=== PATIENT | female | born 1960 | race Caucasian/White ===

== ENCOUNTER 2016-04-20 15:32 | Inpatient (IN) ==
[2016-04-20] MEDS ORDERED: IPRATROPIUM/ALBUTEROL 3 ML AMPUL.NEB NEB ONE (15:40)
[2016-04-20] MEDS ORDERED: methylPREDNISolone SOD SUCC 125 MG/2 ML VIAL IV ONE (16:03)
--- NOTE | 2016-04-20 16:05 | Emergency Department Note ---
SOB HPI - General Chief Complaint: Shortness of Breath/Dyspnea Stated Complaint: Short of breath Time Seen by Provider: 04/20/16 16:01 Source: patient Mode of arrival: ambulatory Limitations: no limitations - History of Present Illness Patient presents with fever to 102, cough and malaise. Hospitalizing March with pneumonia, feels the same. On chronic Remicade for Crohn's disease. Nonproductive cough. No chills Took Tylenol this morning - Related Data Home Medications Medication Instructions Recorded Confirmed Amitriptyline 300 mg PO HS 01/22/15 04/02/16 montelukast 10 mg tablet 10 mg PO QPM 03/28/15 03/27/16 Omeprazole [Prilosec] 20 mg PO BIDAC 09/17/15 04/02/16 mercaptopurine 50 mg tablet 50 mg PO HS tab 02/11/16 03/27/16 Warfarin [Coumadin] 5 mg PO DAILY 03/20/16 04/02/16 vedolizumab 300 mg intravenous 300 mg IV Q2W 03/27/16 03/27/16 solution Previous Rx's Medication Instructions Recorded nadolol 40 mg tablet 40 mg PO BID #60 tab 11/09/14 sumatriptan 100 mg tablet 100 mg PO ONCE PRN #10 tab 06/27/15 losartan 50 mg tablet 50 mg PO QDAY #90 tab 07/26/15 Ondansetron [Zofran Odt] 4 mg PO Q4-6H PRN #6 tab 09/17/15 ferrous sulfate 325 mg (65 mg 325 mg PO QDAY #30 tab 02/14/16 iron) tablet hydroxyzine HCl 25 mg tablet 50 mg PO QHS #60 tab 03/02/16 Cefdinir 300 mg PO BID #8 capsule 03/23/16 Allergies Allergy/AdvReac Type Severity Reaction Status Date / Time morphine Allergy Severe Hives Verified 04/02/16 10:57 cephalexin [From Keflex] Allergy Intermediate Hives Verified 04/02/16 10:57 moxifloxacin [From Avelox] AdvReac Severe Other Verified 04/02/16 10:57 Review of Systems All systems ED: reviewed and negative except as stated. Past Medical History - Past Medical History Attestation: Yes: The following information was validated with the patient. Medical history: Reports: other (Crohn's disease) Surgical history ED: Reports: , cholecystectomy, orthopedic, other, tonsillectomy, other Family history: Reports: other family history (ypertension) - Social History smoking status: Never smoker Alcohol use: Reports: Rarely Drug use: Reports: none Physical Exam - General Limitations: no limitations General appearance: alert, in no apparent distress - Head Head exam: atraumatic - Eye Eye exam: Present: normal appearance - ENT ENT exam: normal exam - Neck Neck exam: Present: normal inspection. Absent: lymphadenopathy - Chest Chest inspection: Present: normal inspection - Respiratory Respiratory exam: Present: normal lung sounds bilaterally - Cardiovascular Cardiovascular exam: Present: regular rate, normal rhythm - Abdominal Exam Abdominal exam: Present: soft. Absent: tenderness - Extremities Exam Extremities exam: Present: normal inspection - Back Exam Back exam: Present: normal inspection - Neurological Exam Neurological exam: Present: alert, oriented X3 - Skin Skin exam: Present: warm, dry Course Vital Signs Temperature 98.0 F 04/20/16 15:34 Pulse Rate 87 04/20/16 15:34 Respiratory Rate 18 04/20/16 15:34 Blood Pressure 93/47 04/20/16 15:34 Pulse Oximetry (%) 90 04/20/16 15:34 Temperature 98.0 F 04/20/16 15:34 Pulse Rate 76 04/20/16 17:56 Respiratory Rate 20 04/20/16 17:56 Blood Pressure 99/51 04/20/16 17:56 Pulse Oximetry (%) 94 04/20/16 17:56 Shortness of Breath/Dyspnea - Lab Data Lab results reviewed: Yes I reviewed the patient's lab results. Result diagrams: 04/20/16 16:15 04/20/16 16:15 Lab Results 04/20/16 04/20/16 04/20/16 Range/Units 16:15 16:15 16:15 WBC 29.6 H (4.5-11.0) K/mcL RBC 3.93 L (4.00-5.20) M/mcL Hgb 11.1 L (12.0-15.0) g/dL Hct 34.4 L (36.0-48.0) % MCV 87.5 (80.0-100.0) fL MCH 28.2 (26.0-34.0) pg MCHC 32.2 (31.0-36.0) g/dL RDW 15.3 H (11.5-14.5) % Plt Count 324 (140-440) K/mcL MPV 8.3 (7.4-10.4) fL Gran % 92.9 H (38.0-78.0) % Lymph % (Auto) 3.3 L (15.5-49.0) % [place] % (Auto) 3.7 (1.0-9.0) % Eos % (Auto) 0.1 (0.0-7.0) % Baso % (Auto) 0 (0.0-2.0) % Gran # 27.5 H (1.8-8.0) K/mcL Lymph # 1.0 L (1.5-4.8) K/mcL [place] # 1.1 H (0.1-0.9) K/mcL Eos # 0 (0.0-0.7) K/mcL Baso # 0 (0.0-0.3) K/mcL Differential Comment (()) PT (11.9-14.5) sec INR (0.9-1.1) VBG Lactic Acid 1.2 (0.5-2.2) mmol/L Sodium 131 L (133-145) mmol/L Potassium 4.0 (3.3-5.1) mmol/L Chloride 92 L (96-108) mmol/L Carbon Dioxide 26 (22-30) mmol/L Anion Gap 13.0 (8-16) BUN 16 (6-20) mg/dl Creatinine 1.1 (0.6-1.1) mg/dl GFR Calculation 56 Glucose 155 H (70-105) mg/dL Calcium 8.3 L (8.6-10.4) mg/dl Total Bilirubin 1.0 (0.0-1.0) mg/dL AST 12 (0-37) U/l ALT 14 (0-40) U/l Alkaline Phosphatase 103 (39-117) U/L Total Protein 7.2 (5.9-8.4) gm/dL Albumin 3.6 (3.2-5.2) gm/dL Globulin 3.6 (2.2-3.7) gm/dL Albumin/Globulin Ratio 1.0 (1.0-2.3) 04/20/16 Range/Units 16:15 WBC (4.5-11.0) K/mcL RBC (4.00-5.20) M/mcL Hgb (12.0-15.0) g/dL Hct (36.0-48.0) % MCV (80.0-100.0) fL MCH (26.0-34.0) pg MCHC (31.0-36.0) g/dL RDW (11.5-14.5) % Plt Count (140-440) K/mcL MPV (7.4-10.4) fL Gran % (38.0-78.0) % Lymph % (Auto) (15.5-49.0) % [place] % (Auto) (1.0-9.0) % Eos % (Auto) (0.0-7.0) % Baso % (Auto) (0.0-2.0) % Gran # (1.8-8.0) K/mcL Lymph # (1.5-4.8) K/mcL [place] # (0.1-0.9) K/mcL Eos # (0.0-0.7) K/mcL Baso # (0.0-0.3) K/mcL Differential Comment (()) PT 24.1 H (11.9-14.5) sec INR 2.1 H (0.9-1.1) VBG Lactic Acid (0.5-2.2) mmol/L Sodium (133-145) mmol/L Potassium (3.3-5.1) mmol/L Chloride (96-108) mmol/L Carbon Dioxide (22-30) mmol/L Anion Gap (8-16) BUN (6-20) mg/dl Creatinine (0.6-1.1) mg/dl GFR Calculation Glucose (70-105) mg/dL Calcium (8.6-10.4) mg/dl Total Bilirubin (0.0-1.0) mg/dL AST (0-37) U/l ALT (0-40) U/l Alkaline Phosphatase (39-117) U/L Total Protein (5.9-8.4) gm/dL Albumin (3.2-5.2) gm/dL Globulin (2.2-3.7) gm/dL Albumin/Globulin Ratio (1.0-2.3) - Radiology Data Radiology results reviewed: Yes I reviewed the patient's radiology results. reported as improving infiltrates Disposition Clinical Impression: Neutrophilic leukocytosis, SIRS (systemic inflammatory response syndrome), Bronchopneumonia, Immune disorder Summary: patient's records from hospitalization in March reviewed; felt to be high risk due to immune compromised state on meds for Crohn's; profound neutrophilia ; no infiltrate on chest x-ray, however findings on auscultation suggestive of developing pneumonia patient discussed with on-call hospitalist, admit to the floor Disposition: Xfer As Inpt ([facility]) Condition: Fair Referrals: Yue Jordan, YADI, CLINICAL CYTOGENETICIST [Primary Care Provider] -
--- NOTE | 2016-04-20 16:09 | XRay Report ---
HISTORY: Reason for Exam:possible PNE FINDINGS: There are zones of consolidated lung parenchyma above both the major and minor fissures, in the right upper lobe. A milder interstitial infiltrate is present in the right lower lobe. This has improved significantly since 08/02 and 04/03/2016. There is no apparent underlying mass. The left lung is clear. No pleural effusion is present. The heart size is normal. IMPRESSION: Improving pneumonia in the right upper and lower lobes. Interpreted and Authenticated by: Connor Marshall 04/20/16
[2016-04-20 17:06] LABS: Basophils # (Auto) 0 K/mcL (0.0-0.3); Basophils % (Auto) 0 % (0.0-2.0); Eosinophils # (Auto) 0 K/mcL (0.0-0.7); Eosinophils % (Auto) 0.1 % (0.0-7.0); Granulocytes % (Auto) 92.9 % (38.0-78.0); Lymphocytes % (Auto) 3.3 % (15.5-49.0); Mean Cell Volume 87.5 fL (80.0-100.0); Mean Corpuscular HGB Conc 32.2 g/dL (31.0-36.0); Mean Corpuscular Hemoglobin 28.2 pg (26.0-34.0); Monocytes # (Auto) 1.1 K/mcL (0.1-0.9); Monocytes % (Auto) 3.7 % (1.0-9.0); Platelet Count 324 K/mcL (140-440); RBC 3.93 M/mcL (4.00-5.20); Red Cell Distribution Width 15.3 % (11.5-14.5)
[2016-04-20 17:27] LABS: ALT/SGPT 14 U/l (0-40); Albumin 3.6 gm/dL (3.2-5.2); Alkaline Phosphatase 103 U/L (39-117); Blood Urea Nitrogen 16 mg/dl (6-20)
[2016-04-20] MEDS ORDERED: VANCOMYCIN 1,000 MG in 0.9 % SODIUM CHLORIDE 250 ML IV ONE (18:46)
--- NOTE | 2016-04-20 19:14 | Internal Med History&Physical ---
Medical - H&P: HPI Patient information: Note initiated : 04/20/16 at 7:12 pm Service Date, if different from initiated Date: [] Patient: Jhoana Garcia a 56 y/o F admitted on for Short of breath. Chief Complaint: [] History of present illness: Ms. Garcia is a 56 year old female presents the emergency room today complaining of increased shortness of breath. She was just here about one month ago with community-acquired pneumonia. she is chronically immunosuppressed due to her Crohn's disease medications. She notes that she was sent home on several days' worth of oral antibiotics but has really never gotten back to baseline. she says she was doing relatively well untilabout 5 days ago when she noted the onset of fever and chills, with temperature as high as 102. She has noticed some mild increased dyspnea with exertion. She has never really gotten rid of the cough that started last month , and that continues to be productive of green phlegm. She is also having more frequent migraines over the lastweek or so She does have some lightheadedness with standing. She also notes that she and her doctors have an fightingwith her chronic sinus infection, and that does not seem to ever settle down. Last week, she was also diagnosedwith C. difficile colitis, and was started on oral fidaxomicin . Also, after her last admission,her Remicade was stopped by GI and she was started on Entyvio, about 2 weeks ago. She will be due for another one of those injections soon. Otherwise, she is not having new eye Or ear symptoms, or sore throat. she denies chest pain or palpitations, and has not had wheezing. She has had some ongoing abdominal discomfort and diarrhea, but these are also chronic symptoms for her. She has not had nausea or vomiting or bright red blood per rectum or dysuria. 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 Bishop Esophageal dysmotilities (Chronic) Esophageal reflux (Chronic) Fungal sinusitis (Chronic) Headache (Chronic) Medication overuse headache with underlying migraine improved some with occiptal nerve block Hypertension (Chronic) MRSA (methicillin resistant Staphylococcus aureus) (Chronic) Migraine (Chronic) 9 years of age- with onset of menses; frequency now has been 2-3 per week, uses Demerol shots to deal with, sees Dr. Walker (neurologist) in [place] for these; has had occipital block at the pain clinic which has helped to lessen these some Migraine (Chronic) Pseudomonas aeruginosa infection (Chronic) Schatzki's ring (Chronic 02/13/14) Sinusitis, chronic (Chronic) 1997- sees and ENT in [place] for control of this; Dr. Nixon; takes prophylactic antibiotics for this- has been evaluated by ENT in [place] Abdominal pain (Resolved) Acute ethmoidal sinusitis (Resolved) Bilateral Acute maxillary sinusitis (Resolved) Complications of medical care (Resolved) Cough (Resolved) Chronic Deep vein thrombophlebitis of arm/jugular vein (Resolved) in [place] near her port for remicade injection; takes coumadin for this now Fall (Resolved) Fever (Resolved 06/25/13) Perforation of intestine (Resolved) Jejunal Pneumonia (Resolved) Renal malignant neoplasm (Resolved) 2005-renal cell carcinoma with partial nephrectomy Tension headache (Resolved) Vomiting (Resolved) Surgical History Port catheter in place (Chronic) 07/26/13 S/P insertion of spinal cord stimulator (Chronic) per Dr. Pittman History of (Resolved) 2 History of appendectomy (Resolved) 1985 History of back surgery (Resolved) 2010-Injection of acrylic at T9 level per Dr. Pittman History of bowel resection (Resolved) 1990.1990,1994, Feb 2010- Has had bowel rupture x 4 and subsequent resections, Dr. Jackson; Has had bowel blockage x 5 with 4 subsequent surgeries as a result, the most recent blockage/rupture was Feb 2010 History of carpal tunnel release (Resolved) Late - [place]ila[place] History of cervical discectomy (Resolved) 2011 History of cholecystectomy (Resolved) 40 yoa History of ear surgery (Resolved) Right middle ear History of esophagogastroduodenoscopy (Resolved 12/31/14) Dr. Bishop History of hysterectomy (Resolved) 1984-With oopherectomy History of left knee replacement (Resolved) 2002-Per Dr Gutierrez History of nephrectomy (Resolved) Left [id number] nephrectomy per Dr Ignacio History of sinus surgery (Resolved) 2008, 05/09/2013- Per Dr Nixon History of tonsillectomy (Resolved) 2 years of age History of tympanoplasty (Resolved) Medication List - Last Reconciled 03/27/16 by Yue Jordan, DNP, [employer]AREHOUSE RECORD CLERK [Amitriptyline 100 MG 300 mg PO HS] ferrous sulfate 325 mg PO QDAY hydroxyzine HCl 50 mg (2 x 25 mg) PO QHS losartan 50 mg PO QDAY mercaptopurine 50 mg PO HS montelukast 10 mg PO QPM nadolol 40 mg PO BID omeprazole 20 mg PO BIDAC ondansetron 4 mg PO Q4-6H PRN sumatriptan 100 mg PO ONCE PRN vedolizumab (Entyvio) 300 mg IV Q2W warfarin 5 mg PO DAILY Allergies/Adverse Reactions morphine Allergy (Severe, Verified 03/27/16 13:13) Hives cephalexin [From Keflex] Allergy (Intermediate, Verified 03/27/16 13:13) Hives moxifloxacin [From Avelox] Adverse Reaction (Severe, Verified 03/27/16 13:13) Other Family History Father Asthma Essential hypertension Leukemia Had Myelodysplasia syndrome which progressed to Leukemia Brother Family history of neoplasm of brain GRandmother (paternal) Essential hypertension Grandmother( maternal) Transient cerebral ischemia Social History she lives with her . She no longer works, and is on medical disability. She does not use tobacco, alcohol, drugs. household members: spouse, other pets and animals: Yes pets and animals: dog(s) victim of physical abuse: No victim of emotional abuse: No Medical - H&P: Meds Home Medications Medication Instructions Recorded Confirmed Type Amitriptyline 300 mg PO HS 01/22/15 04/20/16 History montelukast 10 mg tablet 10 mg PO QPM 03/28/15 04/20/16 History Omeprazole [Prilosec] 20 mg PO BIDAC 09/17/15 04/20/16 History mercaptopurine 50 mg tablet 50 mg PO HS tab 02/11/16 04/20/16 History Warfarin [Coumadin] 5 mg PO DAILY 03/20/16 04/20/16 History vedolizumab 300 mg intravenous 300 mg IV MONTHLY 03/27/16 04/20/16 History solution Ascorbic Acid [Vitamin C] 325 mg PO DAILY 04/20/16 04/20/16 History SUMAtriptan SUCCINATE [Imitrex] 100 mg PO BIDP PRN 04/20/16 04/20/16 History hydrOXYzine [Atarax] 50 mg PO HSP PRN 04/20/16 04/20/16 History Allergies Allergy/AdvReac Type Severity Reaction Status Date / Time morphine Allergy Severe Hives Verified 04/20/16 20:24 cephalexin [From Keflex] Allergy Intermediate Hives Verified 04/20/16 20:24 moxifloxacin [From Avelox] AdvReac Severe Other Verified 04/20/16 20:24 Medical - H&P: Exam - Constitutional Vitals: Temp Pulse Resp BP Pulse Ox 98.0 F 76 20 99/51 94 04/20/16 15:34 04/20/16 17:56 04/20/16 17:56 04/20/16 17:56 04/20/16 17:56 Exam: n exam,she is a well-developed well-nourished female who appears older than her stated age. head: Normocephalic, atraumatic. Ears: TMs and canals are clear. Eyes: PERRLA, EOMI, anicteric. Pharynx: Pharynx is clear, teeth are in good repair. Neck: Is supple, without obvious lymphadenopathy, JVD, thyromegaly, bruits. Cardiac exam: Shows regular rate and rhythm, with normal S1 and S2, without murmurs, rubs, gallops. Lungs: She has a few crackles at the right base, but otherwise lungs are quite clear, without obviousrhonchi or wheezes. Abdomen: Is soft, but somewhat diffusely tender without guarding or rebound. Bowel sounds are active. Extremities: Show no cyanosis, clubbing, edema. Neurologic exam: Is grossly nonfocal. Skin exam: Shows no obvious rashes or other worrisome lesions. Medical - H&P: Reslt - Labs CBC & Chem 7: 04/20/16 16:15 04/20/16 16:15 Labs: Short CBC 04/20/16 Range/Units 16:15 WBC 29.6 H (4.5-11.0) K/mcL Hgb 11.1 L (12.0-15.0) g/dL Hct 34.4 L (36.0-48.0) % Plt Count 324 (140-440) K/mcL BMP 04/20/16 16:15 Sodium 131 L Potassium 4.0 Chloride 92 L Carbon Dioxide 26 BUN 16 Creatinine 1.1 Glucose 155 H Calcium 8.3 L Liver Function 04/20/16 Range/Units 16:15 Total Bilirubin 1.0 (0.0-1.0) mg/dL AST 12 (0-37) U/l ALT 14 (0-40) U/l Alkaline Phosphatase 103 (39-117) U/L Albumin 3.6 (3.2-5.2) gm/dL differential shows 92% granulocytes, with an absolute granulocyte count 27,000 PTT is 24, INR is 2.1 chest x-ray from the ERshows right upper lobe infiltrate and right lower lobe infiltrate, improved when compared to April 03, 2016. lactic acid is normal at 1.2 Medical - H&P: A/P (1) Bronchopneumonia Current visit: Yes Status: Acute (2) Crohns disease Problem details: 1985-Diagnosed per Dr. Bishop Current visit: No Status: Chronic (3) MRSA (methicillin resistant Staphylococcus aureus) Current visit: No Status: Chronic #1. Infectious disease. This patient presents with fever and markedly leukocytosis with bandemia. Clinical symptoms are suggestive of pneumonia, although her chest x-ray does not look worse than the one done 2 weeks ago. -she also was recently diagnosed with C. difficile colitis, and it is possible that that might explain the white count, although it would not explain her respiratory symptoms as well. -Admitted for broad-spectrum IV antibiotics using azithromycin, vancomycin, imipenem, to be sure she is covered fo staph and atypicals, and Pseudomonas., blood and sputum cultures, oxygen, nebulized albuterol, and other medicines as needed. she does have reported past history of both MRSA and pseudomonas infections. #2. Pulmonary. -she does have reported chronic sinusitis, but no reported history of COPD or asthma. she is maintained on Singulair. she should be low risk for PE, given that she has been therapeutic on Coumadin. #3. Immune system. Patient is immunosuppressed due to ongoing treatment for Crohn's disease. #4. GI. - History of Crohn's. continue Entyvio -C. difficile-it is possible that IV antibiotics for pneumonia will worsen this. Continue oral fidaxomicin. -patient also history of GERD. it might be reasonable to discontinue her proton pump inhibitor while here, and use Pepcid instead, regarding the C. difficile. #5. History of DVT. Continue Coumadin and monitor INR. #6. History of migraines. Imitrex when necessary #7. CODE STATUS: Full code.she does not have a living will, but says her is her POA. #8. History of anemia. Continue iron. #9. History of hyperglycemia. Continue to monitor. #10. History of renal cellcancer 10 years ago. She appears to be cured. this visit took approximately 70 minutes to review her record, interview and examine her, and write orders. (4) C. difficile colitis Current visit: Yes Status: Acute (5) Prediabetes Current visit: No Status: Acute
[2016-04-20] MEDS ORDERED: ACETAMINOPHEN 325 MG TABLET PO PRN (20:21)
[2016-04-20] MEDS ORDERED: cefTRIAXone 1 GM in DEXTROSE 5% IN WATER 50 ML IV SCH (20:21)
[2016-04-20] MEDS ORDERED: MAGNESIUM HYDROXIDE 30 ML ORAL.SUSP PO PRN (20:21)
[2016-04-20] MEDS ORDERED: DOCUSATE SODIUM 100 MG CAPSULE PO PRN (20:21)
[2016-04-20] MEDS ORDERED: hydrOXYzine 25 MG TABLET PO PRN (21:07)
[2016-04-20] MEDS: 0.9 % SODIUM CHLORIDE 10 ML SYRINGE IV SCH (21:36)
[2016-04-20] MEDS: IMIPENEM/CILASTATIN SODIUM 500 MG in 0.9 % SODIUM CHLORIDE 100 ML IV SCH (21:36)
[2016-04-20] MEDS ORDERED: IMIPENEM/CILASTATIN SODIUM 500 MG VIAL IV ONE (21:37)
[2016-04-20] MEDS ORDERED: AZITHROMYCIN 500 MG VIAL IV ONE (22:54)
[2016-04-20] MEDS: AZITHROMYCIN 500 MG in DEXTROSE 5% IN WATER 250 ML IV SCH (22:55)
[2016-04-21 00:10] LABS: Hemoglobin A1C 5.5 % HGB (4.0-6.0)
[2016-04-21] MEDS: 0.9 % SODIUM CHLORIDE 10 ML SYRINGE IV SCH ×3 (06:07→21:43)
[2016-04-21] MEDS: IMIPENEM/CILASTATIN SODIUM 500 MG in 0.9 % SODIUM CHLORIDE 100 ML IV SCH ×3 (06:08→21:41)
[2016-04-21] MEDS: ONDANSETRON ODT 4 MG TABLET SL PRN ×3 (06:11→21:41)
[2016-04-21 06:36] LABS: ALT/SGPT 11 U/l (0-40); Albumin 3.6 gm/dL (3.2-5.2); Alkaline Phosphatase 103 U/L (39-117); Bilirubin,Direct < 0.2 mg/dL (0.0-0.3); Blood Urea Nitrogen 19 mg/dl (6-20); Gamma Glutamyl Transpeptidase 56 U/L (5-36); Magnesium 2.2 mg/dL (1.6-2.5); Phosphorous 3.2 mg/dL (2.7-4.5); Uric Acid 8.5 mg/dL (2.5-8.0)
[2016-04-21] MEDS ORDERED: PANTOPRAZOLE 40 MG TABLET PO SCH (07:30)
[2016-04-21] MEDS: FAMOTIDINE 20 MG TABLET PO SCH ×2 (08:42→21:41)
[2016-04-21] MEDS: FERROUS SULFATE 325 MG TABLET PO SCH (08:42)
[2016-04-21] MEDS: ASCORBIC ACID 500 MG TABLET PO SCH (08:42)
[2016-04-21] MEDS: LOSARTAN 50 MG TABLET PO SCH (08:42)
[2016-04-21] MEDS: NADOLOL 40 MG TABLET PO SCH ×2 (08:43→21:36)
[2016-04-21] MEDS: LACTOBACILLUS 1 CAPSULE PO SCH ×2 (08:43→21:37)
[2016-04-21] MEDS: FIDAXOMICIN 200 MG TABLET PO SCH ×2 (08:43→21:38)
[2016-04-21] MEDS ORDERED: ENOXAPARIN 40 MG/0.4 ML SYRINGE SQ SCH (09:00)
[2016-04-21] MEDS: HYDROmorphone 2 MG/ML SYRINGE IV PRN ×6 (11:33→23:08)
[2016-04-21] MEDS: ALBUTEROL SULFATE 2.5 MG/3 ML NEBULIZER NEB SCH ×2 (13:19→19:31)
--- NOTE | 2016-04-21 13:32 | Internal Med Progress Note ---
Medical - PN: Subj Patient information: Note initiated : 04/21/16 at 1:32 pm Service Date, if different from initiated Date: [] Patient: Jhoana Garcia 56 y/o F admitted on 04/20/16 for Short of Breath/ Bronchopneumonia. Chief Complaint: [] Interval history: April 20, 2016:History of present illness: Ms. Garcia is a 56 year old female presents the emergency room today complaining of increased shortness of breath. She was just here about one month ago with community-acquired pneumonia. she is chronically immunosuppressed due to her Crohn's disease medications. She notes that she was sent home on several days' worth of oral antibiotics but has really never gotten back to baseline. she says she was doing relatively well until about 5 days ago when she noted the onset of fever and chills, with temperature as high as 102. She has noticed some mild increased dyspnea with exertion. She has never really gotten rid of the cough that started last month , and that continues to be productive of green phlegm. She is also having more frequent migraines over the lastweek or so She does have some lightheadedness with standing. She also notes that she and her doctors have an fightingwith her chronic sinus infection, and that does not seem to ever settle down. Last week, she was also diagnosedwith C. difficile colitis, and was started on oral fidaxomicin . Also, after her last admission,her Remicade was stopped by GI and she was started on Entyvio, about 2 weeks ago. She will be due for another one of those injections soon. Otherwise, she is not having new eye Or ear symptoms, or sore throat. she denies chest pain or palpitations, and has not had wheezing. She has had some ongoing abdominal discomfort and diarrhea, but these are also chronic symptoms for her. She has not had nausea or vomiting or bright red blood per rectum or dysuria. April 21, 2016: this morning, the patient notesthat her breathing seems quite a bit better. She no longer feels short of breath at rest. She denies significant productive cough.she denies fever or chills, chest pain or palpitations. She continues to have mild abdominal discomfort which is worse on the left side, and occasional loose stools, which again she says is fairly chronic for her. unfortunately, she also developed a migraine last night, and that really has not gone away today. She does not feel that the Imitrex and hydrocodone are helping. - Constitutional Vitals: Vital Signs Temp Pulse Resp BP Pulse Ox 97.1 F L 89 16 87/49 90 04/21/16 07:23 04/21/16 07:23 04/21/16 07:23 04/21/16 07:23 04/21/16 07:23 Period Temp Pulse Resp BP Sys/Corea Pulse Ox Last 24 Hr 97.1 F-97.7 F 69-89 16-24 87-124/49-77 90-97 Intake and Output 04/20/16 04/21/16 04/21/16 21:59 05:59 13:59 Intake Total 400 / 400 100 / 100 Output Total 400 / 400 1000 / 1000 Balance 0 / 0 -900 / -900 Weight 191 lb 8 oz Intake & Output: Intake & Output 04/20/16 04/21/16 04/21/16 21:59 05:59 13:59 Intake Total 400 / 400 100 / 100 Output Total 400 / 400 1000 / 1000 Balance 0 / 0 -900 / -900 Weight 191 lb 8 oz Intake: IV 100 / 100 Sodium Chloride 0.9% 100 100 / 100 ml @ 100 mls/hr IV Q8H ARELY with Primaxin 500 mg Rx#:[id number] Oral 400 / 400 Output: Void Amount 400 / 400 1000 / 1000 Other: Meal Dinner Percent of Meal Consumed 100% Feeding Ability Independent # Bowel Movements 1 Exam: Cardiac exam: Shows regular rate and rhythm, with normal S1 and S2, without murmurs, rubs, gallops. Lungs: She has a few crackles at the right base, but otherwise lungs are quite clear, without obvious rhonchi or wheezes. Abdomen: Is soft, but still moderately tender mainly in the left lower quadrant area, without guarding or rebound. Bowel sounds are active. Extremities: Show no cyanosis, clubbing, edema. Neurologic: The patient tries to keep her eyes shut, due to photophobia. She grimaces when describing her headache.motor exam is otherwise grossly nonfocal. Medical - PN: Obj Da - Labs CBC & Chem 7: 04/20/16 16:15 04/21/16 04:20 Labs: Abnormal Lab Results 04/21/16 04/21/16 07:20 04:20 PT 23.1 H INR 2.0 H Glucose 222 H Uric Acid 8.5 H Calcium 8.5 L GGT 56 H Lactate Dehydrogenase 258 H chest x-ray from the ERshows right upper lobe infiltrate and right lower lobe infiltrate, improved when compared to April 03, 2016. lactic acid is normal at 1.2 blood cultures are negative so far. Meds: Medications Acetaminophen (Tylenol) 650 mg PO Q6HP PRN PRN Reason: PAIN/FEVER > 101 Last Admin: 04/21/16 10:53 Dose: 650 mg Albuterol Sulfate (Ventolin) 2.5 mg NEB Q6HRT [facility] Last Admin: 04/21/16 13:19 Dose: 2.5 mg Amitriptyline HCl (Elavil) 300 mg PO HS [facility] Ascorbic Acid (Vitamin C) 500 mg PO DAILY [facility] Last Admin: 04/21/16 08:42 Dose: 500 mg Docusate Sodium (Colace) 100 mg PO BID PRN PRN Reason: Constipation Famotidine (Pepcid) 20 mg PO BID [facility] Last Admin: 04/21/16 08:42 Dose: 20 mg Ferrous Sulfate (Ferrous Sulfate) 325 mg PO QDAY [facility] Last Admin: 04/21/16 08:42 Dose: 325 mg Hydromorphone HCl (Dilaudid) 0.5 mg IV Q1HP PRN PRN Reason: Headache Last Admin: 04/21/16 12:58 Dose: 0.5 mg Hydroxyzine HCl (Atarax) 50 mg PO HSP PRN PRN Reason: Cough Azithromycin 500 mg/ Dextrose 250 mls @ 250 mls/hr IV Q24H [facility] Stop: 04/22/16 21:59 Last Admin: 04/20/16 22:55 Dose: 250 mls/hr Imipenem/Cilastatin Sodium 500 (mg/ Sodium Chloride) 100 mls @ 100 mls/hr IV Q8H [facility] Last Admin: 04/21/16 13:24 Dose: 100 mls/hr Lactobacillus Rhamnosus (Culturelle) 1 cap PO BID [facility] Last Admin: 04/21/16 08:43 Dose: 1 cap Losartan Potassium (Cozaar) 50 mg PO QDAY [facility] Last Admin: 04/21/16 08:42 Dose: 50 mg Magnesium Hydroxide (Milk Of Magnesia) 30 ml PO DAILYP PRN PRN Reason: Constipation Mercaptopurine (Mercaptopurine) 50 mg PO HS [facility] Montelukast Sodium (Singular) 10 mg PO QPM [facility] Nadolol (Corgard) 40 mg PO BID [facility] Last Admin: 04/21/16 08:43 Dose: 40 mg Ondansetron HCl (Zofran) 4 mg SL Q6HP PRN PRN Reason: Nausea And Vomiting Last Admin: 04/21/16 10:54 Dose: 4 mg Ondansetron HCl (Zofran) 4 mg PO Q4-6H PRN PRN Reason: Nausea And Vomiting Sodium Chloride (Saline Flush) 10 ml IV Q8 [facility] Last Admin: 04/21/16 12:59 Dose: 10 ml Sumatriptan Succinate (Imitrex) 100 mg PO BIDP PRN PRN Reason: Migraine Headache Warfarin Sodium (Coumadin) 5 mg PO TuThSa@1400 [facility] Warfarin Sodium (Coumadin) 2.5 mg PO SuMoWeFr@1400 [facility] Medical - PN: A/P - Time Spent With Patient Total time spent is greater than 50% in coordination of care (as documented) at patient's floor/unit and/or counseling patient: (1) Bronchopneumonia Status: Acute Current Visit: Yes (2) Crohns disease Problem details: 1985-Diagnosed per Dr. Bishop Status: Chronic Current Visit : No (3) MRSA (methicillin resistant Staphylococcus aureus) Status: Chronic Current Visit: No (4) C. difficile colitis Status: Acute Current Visit: Yes (5) Prediabetes Status: Acute Current Visit: No - Narrative A/P Narrative: #1. Infectious disease. This patient presents with fever and markedly leukocytosis with bandemia. Clinical symptoms are suggestive of pneumonia, although her chest x-ray does not look worse than the one done 2 weeks ago. -she also was recently diagnosed with C. difficile colitis, and it is possible that that might explain the white count, although it would not explain her respiratory symptoms as well. -Admitted for broad-spectrum IV antibiotics using azithromycin, vancomycin, imipenem, to be sure she is covered fo staph and atypicals, and Pseudomonas., blood and sputum cultures, oxygen, nebulized albuterol, and other medicines as needed. she does have reported past history of both MRSA and pseudomonas infections. -reviewed her case with GI today as well, and there is some concern about the possibility of a fungal infection. however she is feeling better today, with IV antibiotics. We will continue with these, and recheck her labs tomorrow and continue with this treatment plan if she is improving. If for some reason she is not improving, we will reconsider the possibility of fungal infection. #2. Pulmonary. -she does have reported chronic sinusitis, but no reported history of COPD or asthma. she is maintained on Singulair. she should be low risk for PE, given that she has been therapeutic on Coumadin. #3. Immune system. Patient is immunosuppressed due to ongoing treatment for Crohn's disease. #4. GI. - History of Crohn's. continue Entyvio. If abdominal pain and diarrhea increase , she might require further investigation. -C. difficile-it is possible that IV antibiotics for pneumonia will worsen this. Continue oral fidaxomicin. GI tells me she was treated forC. difficile colitis last fall, with oral vancomycin. -patient also history of GERD. it might be reasonable to discontinue her proton pump inhibitor while here, and use Pepcid instead, regarding the C. difficile. - #5. History of DVT. Continue Coumadin and monitor INR. #6. History of migraines. Imitrex when necessary #7. CODE STATUS: Full code.she does not have a living will, but says her is her POA. #8. History of anemia. Continue iron. #9. History of hyperglycemia. Continue to monitor. #10. History of renal cell cancer 10 years ago. She appears to be cured. approximately 25 minutes was spent today reviewing test results, interviewing and examining the patient, reviewing plan of care with nursing staff and also with GI. Medical - PN: Qual - VTE Deep Vein Thrombosis/Pulmonary Embolism Present on Admission: No
[2016-04-21] MEDS: WARFARIN 5 MG TABLET PO SCH (14:35)
[2016-04-21] MEDS: AZITHROMYCIN 500 MG in DEXTROSE 5% IN WATER 250 ML IV SCH (14:36)
--- NOTE | 2016-04-21 14:49 | Internal Med Progress Note ---
Medical - PN: Subj Patient information: Note initiated : 04/21/16 at 2:43 pm Service Date, if different from initiated Date: [] Patient: Jhoana Garcia a 56 y/o F admitted on 04/20/16 for Short of Breath/ Bronchopneumonia. Chief Complaint: [pneumonia] Interval history: Jhoana is a 56 year old white female with a history of perforating Crohn's enteritis who has been plagued with recurrent sinusitis, resulting in c difficile, prompting a change from her longstanding Remicade to Entyvio. She was hospitalized in early March with pneumonia and did well but developed cough, dyspnea, fever and chills on New Years and returned to ED, which led to admission for recurrent pneumonia. She has been placed on broad spectrum antibiotics and has been feeling better; notably, her says she has improved her incentive spirometer performance today. She continues to have abdominal pain and diarrhea, passing up to 3 BMs daily with some nocturnal stooling. She remains on Dificid, having started it on 04/17. Previously, she has taken vancomycin. She has received her week 0 and week 2 infusions of Entyvio. - Constitutional Vitals: Vital Signs Temp Pulse Resp BP Pulse Ox 97.4 F L 68 24 92/53 93 04/21/16 12:00 04/21/16 13:33 04/21/16 13:33 04/21/16 12:00 04/21/16 13:34 Period Temp Pulse Resp BP Sys/Corea Pulse Ox Last 24 Hr 97.1 F-97.7 F 68-89 16-24 87-124/49-77 90-97 Intake and Output 04/21/16 04/21/16 04/21/16 05:59 13:59 21:59 Intake Total 650 / 650 100 / 100 Output Total 400 / 400 1000 / 1000 Balance 250 / 250 -900 / -900 Intake & Output: Intake & Output 04/21/16 04/21/16 04/21/16 05:59 13:59 21:59 Intake Total 650 / 650 100 / 100 Output Total 400 / 400 1000 / 1000 Balance 250 / 250 -900 / -900 Intake: IV 250 / 250 100 / 100 Dextrose 5% in Water 250 250 / 250 ml @ 250 mls/hr IV Q24H ARELY with Zithromax 500 mg Rx#:[id number] Sodium Chloride 0.9% 100 100 / 100 ml @ 100 mls/hr IV Q8H [facility] with Primaxin 500 mg Rx#:[id number] Oral 400 / 400 Output: Void Amount 400 / 400 1000 / 1000 Other: Meal Dinner Percent of Meal Consumed 100% Feeding Ability Independent # Bowel Movements 1 General appearance: obese Exam: Wearing sunglasses due to migraine. Responds appropriately. - Head Head exam: Present: atraumatic, normal inspection - Neck Neck exam: Absent: lymphadenopathy - Respiratory Respiratory exam: Present: decreased breath sounds. Absent: accessory muscle use - Cardiovascular Cardiovascular exam: Present: normal rate and rhythm - GI/Abdominal GI/Abdominal exam: Present: normal bowel sounds, soft, tenderness. Absent: mass , organomegaly Additional comments: Moderate LLQ tenderness. No peritoneal signs. Medical - PN: Obj Da - Labs CBC & Chem 7: 04/20/16 16:15 04/21/16 04:20 Labs: Abnormal Lab Results 04/21/16 04/21/16 07:20 04:20 PT 23.1 H INR 2.0 H Glucose 222 H Uric Acid 8.5 H Calcium 8.5 L GGT 56 H Lactate Dehydrogenase 258 H Meds: Medications Acetaminophen (Tylenol) 650 mg PO Q6HP PRN PRN Reason: PAIN/FEVER > 101 Last Admin: 04/21/16 10:53 Dose: 650 mg Albuterol Sulfate (Ventolin) 2.5 mg NEB Q6HRT [facility] Last Admin: 04/21/16 13:19 Dose: 2.5 mg Amitriptyline HCl (Elavil) 300 mg PO [facility] Ascorbic Acid (Vitamin C) 500 mg PO DAILY [facility] Last Admin: 04/21/16 08:42 Dose: 500 mg Docusate Sodium (Colace) 100 mg PO BID PRN PRN Reason: Constipation Famotidine (Pepcid) 20 mg PO BID [facility] Last Admin: 04/21/16 08:42 Dose: 20 mg Ferrous Sulfate (Ferrous Sulfate) 325 mg PO QDAY [facility] Last Admin: 04/21/16 08:42 Dose: 325 mg Hydromorphone HCl (Dilaudid) 0.5 mg IV Q1HP PRN PRN Reason: Headache Last Admin: 04/21/16 14:35 Dose: 0.5 mg Hydroxyzine HCl (Atarax) 50 mg PO HSP PRN PRN Reason: Cough Azithromycin 500 mg/ Dextrose 250 mls @ 250 mls/hr IV Q24H [facility] Stop: 04/22/16 21:59 Last Admin: 04/21/16 14:36 Dose: 250 mls/hr Imipenem/Cilastatin Sodium 500 (mg/ Sodium Chloride) 100 mls @ 100 mls/hr IV Q8H [facility] Last Admin: 04/21/16 13:24 Dose: 100 mls/hr Lactobacillus Rhamnosus (Culturelle) 1 cap PO BID [facility] Last Admin: 04/21/16 08:43 Dose: 1 cap Losartan Potassium (Cozaar) 50 mg PO QDAY [facility] Last Admin: 04/21/16 08:42 Dose: 50 mg Magnesium Hydroxide (Milk Of Magnesia) 30 ml PO DAILYP PRN PRN Reason: Constipation Mercaptopurine (Mercaptopurine) 50 mg PO [facility] Montelukast Sodium (Singular) 10 mg PO QPM [facility] Nadolol (Corgard) 40 mg PO BID [facility] Last Admin: 04/21/16 08:43 Dose: 40 mg Ondansetron HCl (Zofran) 4 mg SL Q6HP PRN PRN Reason: Nausea And Vomiting Last Admin: 04/21/16 10:54 Dose: 4 mg Ondansetron HCl (Zofran) 4 mg PO Q4-6H PRN PRN Reason: Nausea And Vomiting Sodium Chloride (Saline Flush) 10 ml IV Q8 [facility] Last Admin: 04/21/16 12:59 Dose: 10 ml Sumatriptan Succinate (Imitrex) 100 mg PO BIDP PRN PRN Reason: Migraine Headache Warfarin Sodium (Coumadin) 5 mg PO TuThSa@1400 [facility] Last Admin: 04/21/16 14:35 Dose: 5 mg Warfarin Sodium (Coumadin) 2.5 mg PO SuMoWeFr@1400 [facility] Medical - PN: A/P - Time Spent With Patient Total time spent is greater than 50% in coordination of care (as documented) at patient's floor/unit and/or counseling patient: 15 - 24 minutes (1) Bronchopneumonia Status: Acute Assessment and plan: Discussed her recent anti-TNF therapy with hospitalist Dr. Davila. Pt should be covered for atypicals, with consideration for a prolonged course of quinolone. If patient fails to improve, empiric treatment of fungal pneumonia should be considered in light of her immunosuppression with anti TNF. Current Visit: Yes (2) C. difficile colitis Status: Acute Assessment and plan: Continue Dificid. Consideration for fecal bacteriotherapy if diarrhea increases. If abdominal pain increases, she may benefit from a course of glucocorticoids as she may experience a Crohn's flare while she transitions from Remicade to Entyvio.I will continue to follow this patient while in hospital. Current Visit: Yes Medical - PN: Qual - VTE Deep Vein Thrombosis/Pulmonary Embolism Present on Admission: No
[2016-04-21] MEDS: MERCAPTOPURINE 50 MG TABLET PO SCH (21:39)
[2016-04-21] MEDS: MONTELUKAST 10 MG TABLET PO SCH (21:41)
[2016-04-21] MEDS: AMITRIPTYLINE 25 MG TABLET PO SCH (21:41)
[2016-04-22] MEDS: ALBUTEROL SULFATE 2.5 MG/3 ML NEBULIZER NEB SCH ×4 (01:45→19:17)
[2016-04-22 05:26] LABS: Basophils # (Auto) 0 K/mcL (0.0-0.3); Basophils % (Auto) 0 % (0.0-2.0); Eosinophils # (Auto) 0.1 K/mcL (0.0-0.7); Eosinophils % (Auto) 0.3 % (0.0-7.0); Granulocytes % (Auto) 89.8 % (38.0-78.0); Lymphocytes # (Auto) 0.8 K/mcL (1.5-4.8); Lymphocytes % (Auto) 4.6 % (15.5-49.0); Mean Cell Volume 88.4 fL (80.0-100.0); Mean Corpuscular HGB Conc 31.9 g/dL (31.0-36.0); Mean Corpuscular Hemoglobin 28.2 pg (26.0-34.0); Monocytes % (Auto) 5.3 % (1.0-9.0); Platelet Count 319 K/mcL (140-440); RBC 3.49 M/mcL (4.00-5.20)
[2016-04-22 05:41] LABS: ALT/SGPT 12 U/l (0-40); Albumin 3.3 gm/dL (3.2-5.2); Alkaline Phosphatase 113 U/L (39-117); Bilirubin,Direct < 0.2 mg/dL (0.0-0.3); Blood Urea Nitrogen 20 mg/dl (6-20); Gamma Glutamyl Transpeptidase 44 U/L (5-36); Magnesium 2.2 mg/dL (1.6-2.5)
[2016-04-22] MEDS: HYDROmorphone 2 MG/ML SYRINGE IV PRN ×7 (06:04→22:45)
[2016-04-22] MEDS: ONDANSETRON ODT 4 MG TABLET SL PRN ×2 (06:04→13:51)
[2016-04-22] MEDS: 0.9 % SODIUM CHLORIDE 10 ML SYRINGE IV SCH ×4 (06:05→22:50)
[2016-04-22] MEDS: IMIPENEM/CILASTATIN SODIUM 500 MG in 0.9 % SODIUM CHLORIDE 100 ML IV SCH ×3 (06:07→21:44)
[2016-04-22] MEDS: FIDAXOMICIN 200 MG TABLET PO SCH ×2 (08:56→21:37)
[2016-04-22] MEDS: LOSARTAN 50 MG TABLET PO SCH (08:56)
[2016-04-22] MEDS: FAMOTIDINE 20 MG TABLET PO SCH ×2 (08:56→21:35)
[2016-04-22] MEDS: FERROUS SULFATE 325 MG TABLET PO SCH (08:56)
[2016-04-22] MEDS: ASCORBIC ACID 500 MG TABLET PO SCH (08:56)
[2016-04-22] MEDS: AZITHROMYCIN 500 MG in DEXTROSE 5% IN WATER 250 ML IV SCH (08:56)
[2016-04-22] MEDS: NADOLOL 40 MG TABLET PO SCH ×2 (08:56→21:34)
[2016-04-22] MEDS: LACTOBACILLUS 1 CAPSULE PO SCH ×2 (08:58→21:37)
--- NOTE | 2016-04-22 12:07 | Internal Med Progress Note ---
Medical - PN: Subj Patient information: Note initiated : 04/22/16 at 12:06 pm Service Date, if different from initiated Date: [] Patient: Jhoana Garcia 56 y/o F admitted on 04/20/16 for Short of Breath/ Bronchopneumonia. Interval history: April 20, 2016:History of present illness: Ms. Garcia is a 56 year old female presents the emergency room today complaining of increased shortness of breath. She was just here about one month ago with community-acquired pneumonia. she is chronically immunosuppressed due to her Crohn's disease medications. She notes that she was sent home on several days' worth of oral antibiotics but has really never gotten back to baseline. she says she was doing relatively well until about 5 days ago when she noted the onset of fever and chills, with temperature as high as 102. She has noticed some mild increased dyspnea with exertion. She has never really gotten rid of the cough that started last month , and that continues to be productive of green phlegm. She is also having more frequent migraines over the lastweek or so She does have some lightheadedness with standing. She also notes that she and her doctors have an fightingwith her chronic sinus infection, and that does not seem to ever settle down. Last week, she was also diagnosedwith C. difficile colitis, and was started on oral fidaxomicin . Also, after her last admission,her Remicade was stopped by GI and she was started on Entyvio, about 2 weeks ago. She will be due for another one of those injections soon. Otherwise, she is not having new eye Or ear symptoms, or sore throat. she denies chest pain or palpitations, and has not had wheezing. She has had some ongoing abdominal discomfort and diarrhea, but these are also chronic symptoms for her. She has not had nausea or vomiting or bright red blood per rectum or dysuria. April 21, 2016: this morning, the patient notesthat her breathing seems quite a bit better. She no longer feels short of breath at rest. She denies significant productive cough.she denies fever or chills, chest pain or palpitations. She continues to have mild abdominal discomfort which is worse on the left side, and occasional loose stools, which again she says is fairly chronic for her. unfortunately, she also developed a migraine last night, and that really has not gone away today. She does not feel that the Imitrex and hydrocodone are helping. April 22, 2016: today, the patient reports decreased shortness of breath. She also has much less of a headache then yesterday, says it is nearly goneat this time. Otherwise, she denies fever or chills, chest pain although she does note some upper chest tightness when she coughs, significant shortness of breath, productive cough. She continues to have abdominal discomfort and loose stools, but again reminds me this is chronic. She denies dysuria. - Constitutional Vitals: Vital Signs Temp Pulse Resp BP Pulse Ox 96.3 F L 63 14 99/59 90 04/22/16 08:00 04/22/16 08:00 04/22/16 08:00 04/22/16 08:00 04/22/16 08:00 Period Temp Pulse Resp BP Sys/Corea Pulse Ox Last 24 Hr 96.0 F-97.4 F 55-89 14-24 99-109/46-59 90-97 Intake and Output 04/21/16 04/22/16 04/22/16 21:59 05:59 13:59 Intake Total 470 / 470 540 / 540 Output Total 700 / 700 400 / 400 Balance -230 / -230 140 / 140 Weight 191 lb Intake & Output: Intake & Output 04/21/16 04/22/16 04/22/16 21:59 05:59 13:59 Intake Total 470 / 470 540 / 540 Output Total 700 / 700 400 / 400 Balance -230 / -230 140 / 140 Weight 191 lb Intake: IV 350 / 350 100 / 100 Dextrose 5% in Water 250 250 / 250 ml @ 250 mls/hr IV Q24H ARELY with Zithromax 500 mg Rx#:[id number] Sodium Chloride 0.9% 100 100 / 100 100 / 100 ml @ 100 mls/hr IV Q8H ARELY with Primaxin 500 mg Rx#:[id number] Oral 120 / 120 440 / 440 Output: Void Amount 700 / 700 400 / 400 Exam: Cardiac exam: Shows regular rate and rhythm, with normal S1 and S2, without murmurs, rubs, gallops. Lungs: She has a few crackles at the right base, but otherwise lungs are quite clear, without obvious rhonchi or wheezes. Abdomen: Is soft, but still moderately tender mainly in the left lower quadrant area, without guarding or rebound. Bowel sounds are active. Extremities: Show no cyanosis, clubbing, edema. Medical - PN: Obj Da - Labs CBC & Chem 7: 04/22/16 04:38 04/22/16 04:39 Labs: Abnormal Lab Results 04/22/16 04/22/16 04/22/16 04:39 04:38 04:38 WBC 18.3 H RBC 3.49 L Hgb 9.8 L Hct 30.9 L RDW 16.0 H Gran % 89.8 H Lymph % (Auto) 4.6 L Gran # 16.5 H Lymph # 0.8 L [place] # 1.0 H PT 24.8 H INR 2.2 H Glucose 116 H Uric Acid 9.0 H Calcium 8.5 L GGT 44 H Lactate Dehydrogenase Triglycerides 167 H 04/21/16 04/21/16 07:20 04:20 WBC RBC Hgb Hct RDW Gran % Lymph % (Auto) Gran # Lymph # [place] # PT 23.1 H INR 2.0 H Glucose 222 H Uric Acid 8.5 H Calcium 8.5 L GGT 56 H Lactate Dehydrogenase 258 H Triglycerides chest x-ray from the ERshows right upper lobe infiltrate and right lower lobe infiltrate, improved when compared to April 03, 2016. lactic acid is normal at 1.2 blood cultures are negative so far. Meds: Medications Acetaminophen (Tylenol) 650 mg PO Q6HP PRN PRN Reason: PAIN/FEVER > 101 Last Admin: 04/21/16 10:53 Dose: 650 mg Albuterol Sulfate (Ventolin) 2.5 mg NEB Q6HRT [facility] Last Admin: 04/22/16 07:00 Dose: 2.5 mg Amitriptyline HCl (Elavil) 300 mg PO HS [facility] Last Admin: 04/21/16 21:41 Dose: 300 mg Ascorbic Acid (Vitamin C) 500 mg PO DAILY [facility] Last Admin: 04/22/16 08:56 Dose: 500 mg Docusate Sodium (Colace) 100 mg PO BID PRN PRN Reason: Constipation Famotidine (Pepcid) 20 mg PO BID [facility] Last Admin: 04/22/16 08:56 Dose: 20 mg Ferrous Sulfate (Ferrous Sulfate) 325 mg PO QDAY [facility] Last Admin: 04/22/16 08:56 Dose: 325 mg Heparin Sodium (Porcine) (Heparin Flush) 5 ml IV Q12 [facility] Last Admin: 04/22/16 08:59 Dose: 5 ml Hydromorphone HCl (Dilaudid) 0.5 mg IV Q1HP PRN PRN Reason: Headache Last Admin: 04/22/16 08:57 Dose: 0.5 mg Hydroxyzine HCl (Atarax) 50 mg PO HSP PRN PRN Reason: Cough Azithromycin 500 mg/ Dextrose 250 mls @ 250 mls/hr IV Q24H [facility] Stop: 04/22/16 21:59 Last Admin: 04/22/16 08:56 Dose: 250 mls/hr Imipenem/Cilastatin Sodium 500 (mg/ Sodium Chloride) 100 mls @ 100 mls/hr IV Q8H [facility] Last Admin: 04/22/16 06:07 Dose: 100 mls/hr Lactobacillus Rhamnosus (Culturelle) 1 cap PO BID [facility] Last Admin: 04/22/16 08:58 Dose: 1 cap Losartan Potassium (Cozaar) 50 mg PO QDAY [facility] Last Admin: 04/22/16 08:56 Dose: 50 mg Magnesium Hydroxide (Milk Of Magnesia) 30 ml PO DAILYP PRN PRN Reason: Constipation Mercaptopurine (Mercaptopurine) 50 mg PO HS [facility] Last Admin: 04/21/16 21:39 Dose: 50 mg Montelukast Sodium (Singular) 10 mg PO QPM [facility] Last Admin: 04/21/16 21:41 Dose: 10 mg Nadolol (Corgard) 40 mg PO BID [facility] Last Admin: 04/22/16 08:56 Dose: 40 mg Ondansetron HCl (Zofran) 4 mg SL Q6HP PRN PRN Reason: Nausea And Vomiting Last Admin: 04/22/16 06:04 Dose: 4 mg Ondansetron HCl (Zofran) 4 mg PO Q4-6H PRN PRN Reason: Nausea And Vomiting Sodium Chloride (Saline Flush) 10 ml IV Q8 [facility] Last Admin: 04/22/16 06:05 Dose: 10 ml Sumatriptan Succinate (Imitrex) 100 mg PO BIDP PRN PRN Reason: Migraine Headache Warfarin Sodium (Coumadin) 5 mg PO TuThSa@1400 [facility] Last Admin: 04/21/16 14:35 Dose: 5 mg Warfarin Sodium (Coumadin) 2.5 mg PO SuMoWeFr@1400 [facility] Medical - PN: A/P - Time Spent With Patient Total time spent is greater than 50% in coordination of care (as documented) at patient's floor/unit and/or counseling patient: (1) Bronchopneumonia Status: Acute Current Visit: Yes (2) Crohns disease Problem details: 1985-Diagnosed per Dr. Bishop Status: Chronic Current Visit : No (3) MRSA (methicillin resistant Staphylococcus aureus) Status: Chronic Current Visit: No (4) C. difficile colitis Status: Acute Current Visit: Yes (5) Prediabetes Status: Acute Current Visit: No - Narrative A/P Narrative: #1. Infectious disease. This patient presents with fever and markedly leukocytosis with bandemia. Clinical symptoms are suggestive of pneumonia, although her chest x-ray does not look worse than the one done 2 weeks ago. -she also was recently diagnosed with C. difficile colitis, and it is possible that that might explain the white count, although it would not explain her respiratory symptoms as well. -Admitted for broad-spectrum IV antibiotics using azithromycin, vancomycin, imipenem, to be sure she is covered fo staph and atypicals, and Pseudomonas., blood and sputum cultures, oxygen, nebulized albuterol, and other medicines as needed. she does have reported past history of both MRSA and pseudomonas infections. -the patient is improving clinically, and lab values are improving as well. Continue current treatment plan. #2. Pulmonary. -she does have reported chronic sinusitis, but no reported history of COPD or asthma. she is maintained on Singulair. she should be low risk for PE, given that she has been therapeutic on Coumadin. #3. Immune system. Patient is immunosuppressed due to ongoing treatment for Crohn's disease. #4. GI. - History of Crohn's. continue Entyvio. If abdominal pain and diarrhea increase , she might require further investigation. -C. difficile-it is possible that IV antibiotics for pneumonia will worsen this. Continue oral fidaxomicin. GI tells me she was treated for C. difficile colitis last fall, with oral vancomycin. -patient also history of GERD. it might be reasonable to discontinue her proton pump inhibitor while here, and use Pepcid instead, regarding the C. difficile. - #5. History of DVT. Continue Coumadin and monitor INR. #6. History of migraines. Imitrex when necessary #7. CODE STATUS: Full code.she does not have a living will, but says her is her POA. #8. History of anemia. Continue iron. #9. History of hyperglycemia. Continue to monitor. #10. History of renal cell cancer 10 years ago. She appears to be cured. approximately 25 minutes was spent today, reviewing her test results, interviewing and examining the patient, reviewing her case with nurses and other staff, and writing orders. Medical - PN: Qual - VTE Deep Vein Thrombosis/Pulmonary Embolism Present on Admission: No
[2016-04-22] MEDS: WARFARIN 2.5 MG TABLET PO SCH (13:51)
[2016-04-22] MEDS: MONTELUKAST 10 MG TABLET PO SCH (21:34)
[2016-04-22] MEDS: ONDANSETRON ODT 4 MG TABLET PO PRN (21:35)
[2016-04-22] MEDS: AMITRIPTYLINE 25 MG TABLET PO SCH (21:35)
[2016-04-22] MEDS: MERCAPTOPURINE 50 MG TABLET PO SCH (21:38)
[2016-04-23] MEDS: HYDROmorphone 2 MG/ML SYRINGE IV PRN (00:15)
[2016-04-23] MEDS: 0.9 % SODIUM CHLORIDE 10 ML SYRINGE IV SCH ×4 (00:16→23:12)
[2016-04-23] MEDS: ALBUTEROL SULFATE 2.5 MG/3 ML NEBULIZER NEB SCH ×4 (01:32→18:20)
[2016-04-23] MEDS ORDERED: HYDROmorphone 2 MG/ML SYRINGE IV PRN (03:27)
[2016-04-23] MEDS ORDERED: 0.9 % SODIUM CHLORIDE 600 ML IV ONE (03:35)
--- NOTE | 2016-04-23 03:35 | Internal Med Progress Note ---
Medical - PN: Subj Patient information: Note initiated : 04/23/16 at 3:32 am Service Date, if different from initiated Date: [] Patient: Jhoana Garcia 56 y/o F admitted on 04/20/16 for Short of Breath/ Bronchopneumonia. Chief Complaint: [] Interval history: April 20, 2016:History of present illness: Ms. Garcia is a 56 year old female presents the emergency room today complaining of increased shortness of breath. She was just here about one month ago with community-acquired pneumonia. she is chronically immunosuppressed due to her Crohn's disease medications. She notes that she was sent home on several days' worth of oral antibiotics but has really never gotten back to baseline. she says she was doing relatively well until about 5 days ago when she noted the onset of fever and chills, with temperature as high as 102. She has noticed some mild increased dyspnea with exertion. She has never really gotten rid of the cough that started last month , and that continues to be productive of green phlegm. She is also having more frequent migraines over the lastweek or so She does have some lightheadedness with standing. She also notes that she and her doctors have an fightingwith her chronic sinus infection, and that does not seem to ever settle down. Last week, she was also diagnosedwith C. difficile colitis, and was started on oral fidaxomicin . Also, after her last admission,her Remicade was stopped by GI and she was started on Entyvio, about 2 weeks ago. She will be due for another one of those injections soon. Otherwise, she is not having new eye Or ear symptoms, or sore throat. she denies chest pain or palpitations, and has not had wheezing. She has had some ongoing abdominal discomfort and diarrhea, but these are also chronic symptoms for her. She has not had nausea or vomiting or bright red blood per rectum or dysuria. April 21, 2016: this morning, the patient notesthat her breathing seems quite a bit better. She no longer feels short of breath at rest. She denies significant productive cough.she denies fever or chills, chest pain or palpitations. She continues to have mild abdominal discomfort which is worse on the left side, and occasional loose stools, which again she says is fairly chronic for her. unfortunately, she also developed a migraine last night, and that really has not gone away today. She does not feel that the Imitrex and hydrocodone are helping. April 22, 2016: today, the patient reports decreased shortness of breath. She also has much less of a headache then yesterday, says it is nearly goneat this time. Otherwise, she denies fever or chills, chest pain although she does note some upper chest tightness when she coughs, significant shortness of breath, productive cough. She continues to have abdominal discomfort and loose stools, but again reminds me this is chronic. She denies dysuria. April 23, 2016:at approximately 3:00 this morning, I was Called to see pt who had been found unresponsive, shallow respirations, drooling. Pt had received two doses of dilaudid around midnight, in addition to amytriptylline. Pt given narcan and verbal stimulation, albuterol neb. Became more responsive. initially her O2 sats were quite low, and blood pressure was in the 80s. Blood gas at that time did show hypoxia and hypercarbia, likely due to hypoventilation. After much stimulation, IV fluids, Narcan, albuterol nebulizer , the patient to become more easily arousable, and vital signs improved. We reviewed her inpatient medications versus her home medications. At home she apparently only takes the amitriptyline at night on a when necessary basis for her headaches. She no longer uses narcotics of any kind at home but has been asking for them quite frequently here. Her told the nurses later today that she's had this problem in the past after taking pain medicines. Later this morning, the patient was more awake. She says she feels relatively well, and is having less shortness of breath. Her headache is much milder today , but she said it it has not really gone away such she got here. She does feel that whenever she gets the IV antibiotics it tends to increase the headache. Otherwise she denies fever or chills, chest pain or significant cough. She continues to have abdominal discomfort, which she thinks may be worse than yesterday. She continues to have loose stools. She denies dysuria. - Constitutional Vitals: Vital Signs Temp Pulse Resp BP Pulse Ox 97.6 F 68 14 116/49 95 04/23/16 00:00 04/23/16 00:00 04/23/16 00:00 04/23/16 00:00 04/23/16 00:00 Period Temp Pulse Resp BP Sys/Corea Pulse Ox Last 24 Hr 96.3 F-98.5 F 55-68 14-20 99-126/49-64 66-97 Intake and Output 04/22/16 04/22/16 04/23/16 13:59 21:59 05:59 Intake Total 100 / 100 280 / 280 100 / 100 Output Total 1200 / 1200 Balance 100 / 100 -920 / -920 100 / 100 Weight 190 lb 8 oz Patient Weight 04/23/16 05:59 Weight 190 lb 8 oz Intake & Output: Intake & Output 04/22/16 04/22/16 04/23/16 13:59 21:59 05:59 Intake Total 100 / 100 280 / 280 100 / 100 Output Total 1200 / 1200 Balance 100 / 100 -920 / -920 100 / 100 Weight 190 lb 8 oz Intake: IV 100 / 100 100 / 100 100 / 100 Sodium Chloride 0.9% 100 100 / 100 100 / 100 100 / 100 ml @ 100 mls/hr IV Q8H ARELY with Primaxin 500 mg Rx#:[id number] Oral 180 / 180 Output: Void Amount 1200 / 1200 Other: Meal Lunch Percent of Meal Consumed 100% Feeding Ability Independent Exam: on exam around 3:30 this morning, she was groggy. Cardiac exam showed regular rate and rhythm. On lung exam she had diffuse wheezing. Abdomenwas soft with active bowel sounds. Extremities showed no significant edema. around 11:00 this morning, she is awake and alert.Neck is supple without obvious lymphadenopathy or JVD. Cardiac exam shows regular rate and rhythm. Lungs are mostly clear, with a few crackles at the bases. Abdomen is soft and continues to have left sided tenderness with a little bit of guarding. Extremities show no significant edema. Medical - PN: Obj Da - Labs CBC & Chem 7: 04/23/16 03:13 04/23/16 03:12 Labs: Abnormal Lab Results 04/22/16 04/22/16 04/22/16 04:39 04:38 04:38 WBC 18.3 H RBC 3.49 L Hgb 9.8 L Hct 30.9 L RDW 16.0 H Gran % 89.8 H Lymph % (Auto) 4.6 L Gran # 16.5 H Lymph # 0.8 L [place] # 1.0 H PT 24.8 H INR 2.2 H Glucose 116 H Uric Acid 9.0 H Calcium 8.5 L GGT 44 H Lactate Dehydrogenase Triglycerides 167 H 04/21/16 04/21/16 07:20 04:20 WBC RBC Hgb Hct RDW Gran % Lymph % (Auto) Gran # Lymph # [place] # PT 23.1 H INR 2.0 H Glucose 222 H Uric Acid 8.5 H Calcium 8.5 L GGT 56 H Lactate Dehydrogenase 258 H Triglycerides ABG from last night: Showed a pH of 7.20, CO2 of 73, PO2 of 117, bicarbonate of 28, O2 saturation 98%, on a 15 L mask. CK was within normal limits. Troponin less than 0.01. CBC today shows an increased white blood cell count 24,000, hematocrit 35, platelet count of 552, with absolute crit radial site count of 19.8. Pro time is 24, with an INR of 2.1 Chemistry panel is only notable for glucose of 231. uric acid is elevated at9.8, calcium low at 8.5, phosphorus high at 5.8 albumin borderline low at 3.6 04/20/16:chest x-ray from the ER shows right upper lobe infiltrate and right lower lobe infiltrate, improved when compared to April 03, 2016. 04/23/16: X-ray from early this morning does show moderate sized right basilar infiltrate with extension to the right mid lung, which may be worse than 3 days ago. There is also a new vague patchy infiltrate of the left base. Consider aspiration. abdominal x-rayshows a normalbowel gas pattern with no free air. Spinal cord stimulator and wires are intact. lactic acid is normal at 1.2 A sputum sample was not adequate for exam. Blood cultures are negative so far. Meds: Medications Acetaminophen (Tylenol) 650 mg PO Q6HP PRN PRN Reason: PAIN/FEVER > 101 Last Admin: 04/21/16 10:53 Dose: 650 mg Albuterol Sulfate (Ventolin) 2.5 mg NEB Q6HRT [facility] Last Admin: 04/23/16 01:32 Dose: Not Given Amitriptyline HCl (Elavil) 300 mg PO [facility] Last Admin: 04/22/16 21:35 Dose: 300 mg Ascorbic Acid (Vitamin C) 500 mg PO DAILY [facility] Last Admin: 04/22/16 08:56 Dose: 500 mg Docusate Sodium (Colace) 100 mg PO BID PRN PRN Reason: Constipation Famotidine (Pepcid) 20 mg PO BID [facility] Last Admin: 04/22/16 21:35 Dose: 20 mg Ferrous Sulfate (Ferrous Sulfate) 325 mg PO QDAY [facility] Last Admin: 04/22/16 08:56 Dose: 325 mg Heparin Sodium (Porcine) (Heparin Flush) 5 ml IV Q12 [facility] Last Admin: 04/22/16 22:50 Dose: 5 ml Hydromorphone HCl (Dilaudid) 0.5 mg IV Q8H PRN PRN Reason: Headache Hydroxyzine HCl (Atarax) 50 mg PO HSP PRN PRN Reason: Cough Imipenem/Cilastatin Sodium 500 (mg/ Sodium Chloride) 100 mls @ 100 mls/hr IV Q8H [facility] Last Infusion: 04/22/16 22:55 Dose: Infused Lactobacillus Rhamnosus (Culturelle) 1 cap PO BID [facility] Last Admin: 04/22/16 21:37 Dose: 1 cap Losartan Potassium (Cozaar) 50 mg PO QDAY [facility] Last Admin: 04/22/16 08:56 Dose: 50 mg Magnesium Hydroxide (Milk Of Magnesia) 30 ml PO DAILYP PRN PRN Reason: Constipation Mercaptopurine (Mercaptopurine) 50 mg PO HS [facility] Last Admin: 04/22/16 21:38 Dose: 50 mg Montelukast Sodium (Singular) 10 mg PO QPM [facility] Last Admin: 04/22/16 21:34 Dose: 10 mg Nadolol (Corgard) 40 mg PO BID [facility] Last Admin: 04/22/16 21:34 Dose: 40 mg Ondansetron HCl (Zofran) 4 mg SL Q6HP PRN PRN Reason: Nausea And Vomiting Last Admin: 04/22/16 13:51 Dose: 4 mg Ondansetron HCl (Zofran) 4 mg PO Q4-6H PRN PRN Reason: Nausea And Vomiting Last Admin: 04/22/16 21:35 Dose: 4 mg Sodium Chloride (Saline Flush) 10 ml IV Q8 [facility] Last Admin: 04/23/16 00:16 Dose: 10 ml Sumatriptan Succinate (Imitrex) 100 mg PO BIDP PRN PRN Reason: Migraine Headache Warfarin Sodium (Coumadin) 5 mg PO TuThSa@1400 [facility] Last Admin: 04/21/16 14:35 Dose: 5 mg Warfarin Sodium (Coumadin) 2.5 mg PO SuMoWeFr@1400 [facility] Last Admin: 04/22/16 13:51 Dose: 2.5 mg Medical - PN: A/P - Time Spent With Patient Total time spent is greater than 50% in coordination of care (as documented) at patient's floor/unit and/or counseling patient: (1) Bronchopneumonia Status: Acute Current Visit: Yes (2) Crohns disease Problem details: 1985-Diagnosed per Dr. Bishop Status: Chronic Current Visit : No (3) MRSA (methicillin resistant Staphylococcus aureus) Status: Chronic Current Visit: No (4) C. difficile colitis Status: Acute Current Visit: Yes (5) Prediabetes Status: Acute Current Visit: No - Narrative A/P Narrative: #1. Infectious disease. This patient presents with fever and markedly leukocytosis with bandemia. Clinical symptoms are suggestive of pneumonia, although her chest x-ray does not look worse than the one done 2 weeks ago. -she also was recently diagnosed with C. difficile colitis, and it is possible that that might explain the white count, although it would not explain her respiratory symptoms as well. -Admitted for broad-spectrum IV antibiotics using azithromycin, vancomycin, imipenem, to be sure she is covered fo staph and atypicals, and Pseudomonas., blood and sputum cultures, oxygen, nebulized albuterol, and other medicines as needed. she does have reported past history of both MRSA and pseudomonas infections. -clinically the patient's lung symptoms have improved steadily, until last night It appears that she had hypoventilation due to taking too much Dilaudid, on top of her amitriptyline. She probably did aspirate, according to her x-ray results. However, she seems to be feeling better today. We will stick with the current treatment plan for now, as the imipenem should help coverthe aspiration. recheck labs in the a.m. #2. Pulmonary. -she does have reported chronic sinusitis, but no reported history of COPD or asthma. she is maintained on Singulair. she should be low risk for PE, given that she has been therapeutic on Coumadin. #3. Immune system. Patient is immunosuppressed due to ongoing treatment for Crohn's disease. #4. GI. - History of Crohn's. continue Entyvio. If abdominal pain and diarrhea increase , she might require further investigation. -C. difficile-it is possible that IV antibiotics for pneumonia will worsen this. Continue oral fidaxomicin. GI tells me she was treated for C. difficile colitis last fall, with oral vancomycin. -patient also history of GERD. it might be reasonable to discontinue her proton pump inhibitor while here, and use Pepcid instead, regarding the C. difficile. - #5. History of DVT. Continue Coumadin and monitor INR. #6. History of migraines. Imitrex when necessary. Unfortunately this is not working as well as usual. She is requesting more narcotics IV today, but her and I feel this is not a good idea. I did offer her oral Percocet at a low-dose. #7. CODE STATUS: Full code.she does not have a living will, but says her is her POA. #8. History of anemia. Continue iron. #9. History of hyperglycemia. Continue to monitor. #10. History of renal cell cancer 10 years ago. She appears to be cured. approximate 30 minutes was spent on her usual visit today, reviewing test results, interviewing and examining her, and writing orders. An additional 30 minutes was spent during the night, and the rapid response, and evaluating her status and discussing plan of care with nursing staff. Medical - PN: Qual - VTE Deep Vein Thrombosis/Pulmonary Embolism Present on Admission: No
[2016-04-23 03:58] LABS: Basophils # (Auto) 0.1 K/mcL (0.0-0.3); Basophils % (Auto) 0.3 % (0.0-2.0); Eosinophils # (Auto) 0.5 K/mcL (0.0-0.7); Eosinophils % (Auto) 2.1 % (0.0-7.0); Granulocytes % (Auto) 82.1 % (38.0-78.0); Lymphocytes # (Auto) 2.4 K/mcL (1.5-4.8); Lymphocytes % (Auto) 9.7 % (15.5-49.0); Mean Cell Volume 88.5 fL (80.0-100.0); Mean Corpuscular HGB Conc 31.9 g/dL (31.0-36.0); Mean Corpuscular Hemoglobin 28.2 pg (26.0-34.0); Monocytes # (Auto) 1.4 K/mcL (0.1-0.9); Monocytes % (Auto) 5.8 % (1.0-9.0); Platelet Count 552 K/mcL (140-440); RBC 3.93 M/mcL (4.00-5.20)
[2016-04-23] MEDS ORDERED: NALOXONE HCL 0.4 MG/ML VIAL IV PRN (04:06)
[2016-04-23] MEDS ORDERED: IPRATROPIUM/ALBUTEROL 3 ML AMPUL.NEB NEB PRN (04:06)
[2016-04-23] MEDS: NALOXONE HCL 0.4 MG/ML VIAL IV PRN (04:11)
[2016-04-23 04:13] LABS: ALT/SGPT 14 U/l (0-40); Albumin 3.6 gm/dL (3.2-5.2); Alkaline Phosphatase 86 U/L (39-117); Bilirubin,Direct < 0.2 mg/dL (0.0-0.3); Blood Urea Nitrogen 25 mg/dl (6-20); Gamma Glutamyl Transpeptidase 40 U/L (5-36); Magnesium 2.1 mg/dL (1.6-2.5); Phosphorous 5.8 mg/dL (2.7-4.5); Uric Acid 9.8 mg/dL (2.5-8.0)
[2016-04-23] MEDS ORDERED: 0.9 % SODIUM CHLORIDE 1,000 ML IV SCH (04:15)
[2016-04-23] MEDS ORDERED: NALOXONE HCL 0.4 MG/ML VIAL ONE (04:27)
[2016-04-23] MEDS: IMIPENEM/CILASTATIN SODIUM 500 MG in 0.9 % SODIUM CHLORIDE 100 ML IV SCH ×3 (05:10→23:13)
--- NOTE | 2016-04-23 07:43 | XRay Report ---
CLINICAL INFORMATION: Follow pneumonia COMPARISON: 04/20/2016 2 view chest x-ray FINDINGS: Heart size, mediastinum and pulmonary vessels are normal. Right IJ Port-A-Cath is in stable satisfactory position. Moderate sized infiltrate in the right base with a small vague component extending into the right midlung has progressed. New small vague infiltrate has also developed in the left lateral base. A small right pleural effusion noted IMPRESSION: Moderate sized right basilar infiltrate with extension to right midlung - worsening since exam 3 days ago. New small vague patchy infiltrate in the left lateral base. Consider aspiration pneumonia Interpreted and Authenticated by: Kingston Tovar 04/23/16
[2016-04-23] MEDS: LACTOBACILLUS 1 CAPSULE PO SCH ×2 (09:15→21:30)
[2016-04-23] MEDS: FAMOTIDINE 20 MG TABLET PO SCH ×2 (09:15→21:30)
[2016-04-23] MEDS: FERROUS SULFATE 325 MG TABLET PO SCH (09:15)
[2016-04-23] MEDS: FIDAXOMICIN 200 MG TABLET PO SCH ×2 (09:15→21:30)
[2016-04-23] MEDS: NADOLOL 40 MG TABLET PO SCH ×2 (09:15→21:30)
[2016-04-23] MEDS: ASCORBIC ACID 500 MG TABLET PO SCH (09:15)
[2016-04-23] MEDS: LOSARTAN 50 MG TABLET PO SCH (09:16)
[2016-04-23] MEDS: WARFARIN 5 MG TABLET PO SCH (14:19)
[2016-04-23] MEDS: oxyCODONE/APAP 10/325MG TABLET PO PRN ×3 (15:12→23:27)
[2016-04-23] MEDS: ONDANSETRON ODT 4 MG TABLET SL PRN (15:25)
--- NOTE | 2016-04-23 16:48 | XRay Report ---
CLINICAL INFORMATION: Left-sided abdominal pain history of Crohn's disease COMPARISON: Abdomen and pelvic CT from 06/10/2015 FINDINGS: Stool gas pattern is normal. Is no free air, pathologic calcification or organomegaly. [Spinal cord stimulator and wires are intact.. IMPRESSION: Negative Interpreted and Authenticated by: Kingston Tovar 04/23/16
[2016-04-23] MEDS: MONTELUKAST 10 MG TABLET PO SCH (21:30)
[2016-04-23] MEDS: AMITRIPTYLINE 25 MG TABLET PO SCH (21:30)
[2016-04-23] MEDS: MERCAPTOPURINE 50 MG TABLET PO SCH (21:30)
[2016-04-24] MEDS: ALBUTEROL SULFATE 2.5 MG/3 ML NEBULIZER NEB SCH ×4 (01:30→19:00)
[2016-04-24] MEDS: NALOXONE HCL 0.4 MG/ML VIAL IV PRN (05:23)
[2016-04-24] MEDS: IMIPENEM/CILASTATIN SODIUM 500 MG in 0.9 % SODIUM CHLORIDE 100 ML IV SCH ×3 (05:23→20:30)
[2016-04-24] MEDS: 0.9 % SODIUM CHLORIDE 10 ML SYRINGE IV SCH ×3 (05:30→20:40)
[2016-04-24 06:04] LABS: Basophils # (Auto) 0 K/mcL (0.0-0.3); Basophils % (Auto) 0.4 % (0.0-2.0); Eosinophils # (Auto) 0.3 K/mcL (0.0-0.7); Eosinophils % (Auto) 2.4 % (0.0-7.0); Granulocytes % (Auto) 72.3 % (38.0-78.0); Lymphocytes # (Auto) 1.6 K/mcL (1.5-4.8); Mean Cell Volume 88.4 fL (80.0-100.0); Mean Corpuscular HGB Conc 31.9 g/dL (31.0-36.0); Mean Corpuscular Hemoglobin 28.2 pg (26.0-34.0); Monocytes # (Auto) 1.2 K/mcL (0.1-0.9); Monocytes % (Auto) 10.9 % (1.0-9.0); Platelet Count 428 K/mcL (140-440); RBC 3.64 M/mcL (4.00-5.20); Red Cell Distribution Width 15.2 % (11.5-14.5)
[2016-04-24] MEDS: LOSARTAN 50 MG TABLET PO SCH (09:08)
[2016-04-24] MEDS: FAMOTIDINE 20 MG TABLET PO SCH ×2 (09:08→20:40)
[2016-04-24] MEDS: ASCORBIC ACID 500 MG TABLET PO SCH (09:08)
[2016-04-24] MEDS: FERROUS SULFATE 325 MG TABLET PO SCH (09:08)
[2016-04-24] MEDS: SUMAtriptan SUCCINATE 50 MG TABLET PO PRN (09:10)
[2016-04-24] MEDS: NADOLOL 40 MG TABLET PO SCH ×2 (09:27→20:40)
[2016-04-24] MEDS: FIDAXOMICIN 200 MG TABLET PO SCH ×3 (09:39→20:40)
[2016-04-24] MEDS: LACTOBACILLUS 1 CAPSULE PO SCH ×2 (09:39→20:40)
[2016-04-24] MEDS: ONDANSETRON ODT 4 MG TABLET PO PRN (15:18)
[2016-04-24] MEDS: WARFARIN 2.5 MG TABLET PO SCH (15:28)
[2016-04-24] MEDS: oxyCODONE/APAP 10/325MG TABLET PO PRN ×2 (15:29→22:37)
--- NOTE | 2016-04-24 16:43 | Internal Med Progress Note ---
Medical - PN: Subj Patient information: Note initiated : 04/24/16 at 4:43 pm Service Date, if different from initiated Date: [] Patient: Jhoana Garcia 56 y/o F admitted on 04/20/16 for Short of Breath/ Bronchopneumonia. Chief Complaint: [] Interval history: April 20, 2016:History of present illness: Ms. Garcia is a 56 year old female presents the emergency room today complaining of increased shortness of breath. She was just here about one month ago with community-acquired pneumonia. she is chronically immunosuppressed due to her Crohn's disease medications. She notes that she was sent home on several days' worth of oral antibiotics but has really never gotten back to baseline. she says she was doing relatively well until about 5 days ago when she noted the onset of fever and chills, with temperature as high as 102. She has noticed some mild increased dyspnea with exertion. She has never really gotten rid of the cough that started last month , and that continues to be productive of green phlegm. She is also having more frequent migraines over the lastweek or so She does have some lightheadedness with standing. She also notes that she and her doctors have an fightingwith her chronic sinus infection, and that does not seem to ever settle down. Last week, she was also diagnosedwith C. difficile colitis, and was started on oral fidaxomicin . Also, after her last admission,her Remicade was stopped by GI and she was started on Entyvio, about 2 weeks ago. She will be due for another one of those injections soon. Otherwise, she is not having new eye Or ear symptoms, or sore throat. she denies chest pain or palpitations, and has not had wheezing. She has had some ongoing abdominal discomfort and diarrhea, but these are also chronic symptoms for her. She has not had nausea or vomiting or bright red blood per rectum or dysuria. April 21, 2016: this morning, the patient notesthat her breathing seems quite a bit better. She no longer feels short of breath at rest. She denies significant productive cough.she denies fever or chills, chest pain or palpitations. She continues to have mild abdominal discomfort which is worse on the left side, and occasional loose stools, which again she says is fairly chronic for her. unfortunately, she also developed a migraine last night, and that really has not gone away today. She does not feel that the Imitrex and hydrocodone are helping. April 22, 2016: today, the patient reports decreased shortness of breath. She also has much less of a headache then yesterday, says it is nearly goneat this time. Otherwise, she denies fever or chills, chest pain although she does note some upper chest tightness when she coughs, significant shortness of breath, productive cough. She continues to have abdominal discomfort and loose stools, but again reminds me this is chronic. She denies dysuria. April 23, 2016:at approximately 3:00 this morning, I was Called to see pt who had been found unresponsive, shallow respirations, drooling. Pt had received two doses of dilaudid around midnight, in addition to amytriptylline. Pt given narcan and verbal stimulation, albuterol neb. Became more responsive. initially her O2 sats were quite low, and blood pressure was in the 80s. Blood gas at that time did show hypoxia and hypercarbia, likely due to hypoventilation. After much stimulation, IV fluids, Narcan, albuterol nebulizer , the patient to become more easily arousable, and vital signs improved. We reviewed her inpatient medications versus her home medications. At home she apparently only takes the amitriptyline at night on a when necessary basis for her headaches. She no longer uses narcotics of any kind at home but has been asking for them quite frequently here. Her told the nurses later today that she's had this problem in the past after taking pain medicines. Later this morning, the patient was more awake. She says she feels relatively well, and is having less shortness of breath. Her headache is much milder today , but she said it it has not really gone away such she got here. She does feel that whenever she gets the IV antibiotics it tends to increase the headache. Otherwise she denies fever or chills, chest pain or significant cough. She continues to have abdominal discomfort, which she thinks may be worse than yesterday. She continues to have loose stools. She denies dysuria. April 24, 2016: i stopped in to see the patient this morning, but she was sound asleep so I spoke with her instead. We discussed the possibility of a prolonged course of IV antibiotics, and a possibly doing those at home. However he informs me that her insurance refuses to cover IV antibiotics at home. this evening, the patient notes she is still having issues with her migraines which seemed to flare whenever they give her the IV antibiotics. She is wondering if she could have anything more in the way of pain medications, but we discussed that I will was reluctant to give her too much in the way of narcotics, because of the events of early yesterday morning. She continues to have a cough, but it is nonproductive. She denies fever or chills, or chest pain. She thinks her shortness of breath continues to improve. She continues to have mild abdominal discomfort, but says it's really not changing. - Constitutional Vitals: Vital Signs Temp Pulse Resp BP Pulse Ox 97.9 F 67 18 98/56 95 04/24/16 12:00 04/24/16 13:45 04/24/16 13:45 04/24/16 12:00 04/24/16 12:00 Period Temp Pulse Resp BP Sys/Corea Pulse Ox Last 24 Hr 97.8 F-99.0 F 56-87 12-20 88-114/54-68 94-99 Intake and Output 04/24/16 04/24/16 04/24/16 05:59 13:59 21:59 Intake Total 800 / 800 280 / 280 Output Total 900 / 900 Balance 800 / 800 -620 / -620 Weight 190 lb Patient Weight 04/25/16 05:59 Weight 190 lb Intake & Output: Intake & Output 04/24/16 04/24/16 04/24/16 05:59 13:59 21:59 Intake Total 800 / 800 280 / 280 Output Total 900 / 900 Balance 800 / 800 -620 / -620 Weight 190 lb Intake: IV 100 / 100 100 / 100 Sodium Chloride 0.9% 100 100 / 100 100 / 100 ml @ 100 mls/hr IV Q8H ARELY with Primaxin 500 mg Rx#:[id number] Oral 700 / 700 180 / 180 Output: Void Amount 900 / 900 Other: Meal Breakfast Percent of Meal Consumed 100% Feeding Ability Independent # Voids 2 Exam: on exam, she is in no acute distress. Neck is supple without lymphadenopathy. cardiac exam shows regular rate and rhythm. Lung exam shows scattered fine crackles bilaterally. Abdomen appears soft. Extremities show no significant edema. Medical - PN: Obj Da - Labs CBC & Chem 7: 04/24/16 04:02 04/23/16 03:12 Labs: Abnormal Lab Results 04/24/16 04/24/16 04/23/16 04:02 04:02 03:14 WBC 11.3 H RBC 3.64 L Hgb 10.3 L Hct 32.2 L RDW 15.2 H Plt Count Gran % Lymph % (Auto) 14.0 L [place] % (Auto) 10.9 H Gran # 8.1 H Lymph # [place] # 1.2 H PT 23.2 H INR 2.0 H BUN Glucose Uric Acid Calcium Phosphorus GGT Total Creatine Kinase 12 L Triglycerides 04/23/16 04/23/16 04/23/16 03:13 03:13 03:12 WBC 24.1 H RBC 3.93 L Hgb 11.1 L Hct 34.8 L RDW 16.0 H Plt Count 552 H Gran % 82.1 H Lymph % (Auto) 9.7 L [place] % (Auto) Gran # 19.8 H Lymph # [place] # 1.4 H PT 24.6 H INR 2.1 H BUN 25 H Glucose 231 H Uric Acid 9.8 H Calcium 8.5 L Phosphorus 5.8 H GGT 40 H Total Creatine Kinase Triglycerides 249 H 04/22/16 04/22/16 04/22/16 04:39 04:38 04:38 WBC 18.3 H RBC 3.49 L Hgb 9.8 L Hct 30.9 L RDW 16.0 H Plt Count Gran % 89.8 H Lymph % (Auto) 4.6 L [place] % (Auto) Gran # 16.5 H Lymph # 0.8 L [place] # 1.0 H PT 24.8 H INR 2.2 H BUN Glucose 116 H Uric Acid 9.0 H Calcium 8.5 L Phosphorus GGT 44 H Total Creatine Kinase Triglycerides 167 H sputum sample from April 23, was contaminated and could not be read. ABG from 04/23/16: Showed a pH of 7.20, CO2 of 73, PO2 of 117, bicarbonate of 28, O2 saturation 98%, on a 15 L mask. CK was within normal limits. Troponin less than 0.01. 04/23/16;CBC today shows an increased white blood cell count 24,000, hematocrit 35 , platelet count of 552, with absolute crit radial site count of 19.8. Pro time is 24, with an INR of 2.1 Chemistry panel is only notable for glucose of 231. uric acid is elevated at9.8, calcium low at 8.5, phosphorus high at 5.8 albumin borderline low at 3.6 04/20/16:chest x-ray from the ER shows right upper lobe infiltrate and right lower lobe infiltrate, improved when compared to April 03, 2016. 04/23/16: X-ray from early this morning does show moderate sized right basilar infiltrate with extension to the right mid lung, which may be worse than 3 days ago. There is also a new vague patchy infiltrate of the left base. Consider aspiration. -abdominal x-rayshows a normalbowel gas pattern with no free air. Spinal cord stimulator and wires are intact. lactic acid is normal at 1.2 A sputum sample was not adequate for exam. Blood cultures are negative so far. Meds: Medications Acetaminophen (Tylenol) 650 mg PO Q6HP PRN PRN Reason: PAIN/FEVER > 101 Last Admin: 04/21/16 10:53 Dose: 650 mg Albuterol Sulfate (Ventolin) 2.5 mg NEB Q6HRT [facility] Last Admin: 04/24/16 13:30 Dose: 2.5 mg Albuterol/Ipratropium (Duoneb) 3 ml NEB ONCE PRN PRN Reason: Shortness Of Breath Last Admin: 04/23/16 03:20 Dose: 3 ml Amitriptyline HCl (Elavil) 300 mg PO HS [facility] Last Admin: 04/23/16 21:30 Dose: 300 mg Ascorbic Acid (Vitamin C) 500 mg PO DAILY [facility] Last Admin: 04/24/16 09:08 Dose: 500 mg Docusate Sodium (Colace) 100 mg PO BID PRN PRN Reason: Constipation Famotidine (Pepcid) 20 mg PO BID [facility] Last Admin: 04/24/16 09:08 Dose: 20 mg Ferrous Sulfate (Ferrous Sulfate) 325 mg PO QDAY [facility] Last Admin: 04/24/16 09:08 Dose: 325 mg Heparin Sodium (Porcine) (Heparin Flush) 5 ml IV Q12 [facility] Last Admin: 04/24/16 09:09 Dose: 5 ml Hydromorphone HCl (Dilaudid) 0.5 mg IV Q8H PRN PRN Reason: Headache Hydroxyzine HCl (Atarax) 50 mg PO HSP PRN PRN Reason: Cough Imipenem/Cilastatin Sodium 500 (mg/ Sodium Chloride) 100 mls @ 100 mls/hr IV Q8H [facility] Last Admin: 04/24/16 15:28 Dose: 100 mls/hr Sodium Chloride (Sodium Chloride 0.9%) 1,000 mls @ 0 mls/hr IV .Q0M [facility] PRN Reason: KVO Lactobacillus Rhamnosus (Culturelle) 1 cap PO BID [facility] Last Admin: 04/24/16 09:39 Dose: 1 cap Losartan Potassium (Cozaar) 50 mg PO QDAY [facility] Last Admin: 04/24/16 09:08 Dose: 50 mg Magnesium Hydroxide (Milk Of Magnesia) 30 ml PO DAILYP PRN PRN Reason: Constipation Mercaptopurine (Mercaptopurine) 50 mg PO HS [facility] Last Admin: 04/23/16 21:30 Dose: 50 mg Montelukast Sodium (Singular) 10 mg PO QPM [facility] Last Admin: 04/23/16 21:30 Dose: 10 mg Nadolol (Corgard) 40 mg PO BID [facility] Last Admin: 04/24/16 09:27 Dose: Not Given Naloxone HCl (Narcan) 0.1 mg IV Q1HP PRN PRN Reason: Opiate Reversal Last Admin: 04/24/16 05:23 Dose: 0.1 mg Naloxone HCl (Narcan) 0.1 mg IV Q2MIN PRN PRN Reason: Opiate Reversal Ondansetron HCl (Zofran) 4 mg SL Q6HP PRN PRN Reason: Nausea And Vomiting Last Admin: 04/23/16 15:25 Dose: 4 mg Ondansetron HCl (Zofran) 4 mg PO Q4-6H PRN PRN Reason: Nausea And Vomiting Last Admin: 04/24/16 15:18 Dose: 4 mg Oxycodone/Acetaminophen (Percocet 10-325mg) 1 tab PO Q4-6HP PRN PRN Reason: Pain Last Admin: 04/24/16 15:29 Dose: 1 tab Sodium Chloride (Saline Flush) 10 ml IV Q8 [facility] Last Admin: 04/24/16 15:29 Dose: 10 ml Sumatriptan Succinate (Imitrex) 100 mg PO BIDP PRN PRN Reason: Migraine Headache Last Admin: 04/24/16 09:10 Dose: 100 mg Warfarin Sodium (Coumadin) 5 mg PO TuThSa@1400 [facility] Last Admin: 04/23/16 14:19 Dose: 5 mg Warfarin Sodium (Coumadin) 2.5 mg PO SuMoWeFr@1400 [facility] Last Admin: 04/24/16 15:28 Dose: 2.5 mg Medical - PN: A/P - Time Spent With Patient Total time spent is greater than 50% in coordination of care (as documented) at patient's floor/unit and/or counseling patient: (1) Bronchopneumonia Status: Acute Current Visit: Yes (2) Crohns disease Problem details: 1985-Diagnosed per Dr. Bishop Status: Chronic Current Visit : No (3) MRSA (methicillin resistant Staphylococcus aureus) Status: Chronic Current Visit: No (4) C. difficile colitis Status: Acute Current Visit: Yes (5) Prediabetes Status: Acute Current Visit: No - Narrative A/P Narrative: #1. Infectious disease. This patient presents with fever and marked leukocytosis with bandemia. Clinical symptoms are suggestive of pneumonia, although her chest x-ray does not look worse than the one done 2 weeks ago. . -Admitted for broad- spectrum IV antibiotics using azithromycin, vancomycin, imipenem, to be sure she is covered fo staph and atypicals, and Pseudomonas., blood and sputum cultures, oxygen, nebulized albuterol, and other medicines as needed. she does have reported past history of both MRSA and pseudomonas infections. -clinically the patient's lung symptoms have improved steadily. -I would like to continue IV antibiotics for a total of 10-14 days. #2. Pulmonary. -she does have reported chronic sinusitis, but no reported history of COPD or asthma. she is maintained on Singulair. she should be low risk for PE, given that she has been therapeutic on Coumadin. #3. Immune system. Patient is immunosuppressed due to ongoing treatment for Crohn's disease. #4. GI. - History of Crohn's. continue Entyvio. If abdominal pain and diarrhea increase , she might require further investigation. -C. difficile-it is possible that IV antibiotics for pneumonia will worsen this. Continue oral fidaxomicin. GI tells me she was treated for C. difficile colitis last fall, with oral vancomycin. -patient also history of GERD. it might be reasonable to discontinue her proton pump inhibitor while here, and use Pepcid instead, regarding the C. difficile. - #5. History of DVT. Continue Coumadin and monitor INR. #6. History of migraines. Imitrex when necessary. Unfortunately this is not working as well as usual. She is requesting more narcotics . We could try increasing her Percocet dose somewhat but keep a close eye on her. I will also decrease the dose of her amitriptyline. #7. CODE STATUS: Full code.she does not have a living will, but says her is her POA. #8. History of anemia. Continue iron. #9. History of hyperglycemia. Continue to monitor. #10. History of renal cell cancer 10 years ago. She appears to be cured. visit today took about 35 minutes, to review her course and plan of care with her earlier today, and then to interview and examine her this evening review test results, and write orders. Medical - PN: Qual - VTE Deep Vein Thrombosis/Pulmonary Embolism Present on Admission: No
[2016-04-24] MEDS: MONTELUKAST 10 MG TABLET PO SCH (20:40)
[2016-04-24] MEDS: MERCAPTOPURINE 50 MG TABLET PO SCH (20:40)
[2016-04-24] MEDS: AMITRIPTYLINE 25 MG TABLET PO SCH ×2 (21:10→22:32)
[2016-04-25] MEDS: ALBUTEROL SULFATE 2.5 MG/3 ML NEBULIZER NEB SCH ×4 (01:37→19:39)
[2016-04-25] MEDS: 0.9 % SODIUM CHLORIDE 10 ML SYRINGE IV SCH ×3 (05:15→20:57)
[2016-04-25] MEDS: IMIPENEM/CILASTATIN SODIUM 500 MG in 0.9 % SODIUM CHLORIDE 100 ML IV SCH ×3 (05:15→19:47)
[2016-04-25 06:23] LABS: Basophils # (Auto) 0 K/mcL (0.0-0.3); Basophils % (Auto) 0.2 % (0.0-2.0); Eosinophils # (Auto) 0.2 K/mcL (0.0-0.7); Eosinophils % (Auto) 2.7 % (0.0-7.0); Granulocytes % (Auto) 67.7 % (38.0-78.0); Lymphocytes # (Auto) 1.6 K/mcL (1.5-4.8); Lymphocytes % (Auto) 20.1 % (15.5-49.0); Mean Corpuscular HGB Conc 32.2 g/dL (31.0-36.0); Mean Corpuscular Hemoglobin 28.4 pg (26.0-34.0); Monocytes # (Auto) 0.8 K/mcL (0.1-0.9); Monocytes % (Auto) 9.3 % (1.0-9.0); Platelet Count 335 K/mcL (140-440); RBC 3.49 M/mcL (4.00-5.20); Red Cell Distribution Width 14.9 % (11.5-14.5)
[2016-04-25] MEDS: LACTOBACILLUS 1 CAPSULE PO SCH ×2 (08:55→20:13)
[2016-04-25] MEDS: FERROUS SULFATE 325 MG TABLET PO SCH (08:55)
[2016-04-25] MEDS: FAMOTIDINE 20 MG TABLET PO SCH ×2 (08:55→20:07)
[2016-04-25] MEDS: LOSARTAN 50 MG TABLET PO SCH (08:55)
[2016-04-25] MEDS: ASCORBIC ACID 500 MG TABLET PO SCH (08:55)
[2016-04-25] MEDS: FIDAXOMICIN 200 MG TABLET PO SCH ×2 (08:56→20:13)
[2016-04-25] MEDS: oxyCODONE/APAP 10/325MG TABLET PO PRN ×3 (09:07→20:08)
[2016-04-25] MEDS: NADOLOL 40 MG TABLET PO SCH ×2 (09:07→20:14)
[2016-04-25] MEDS: SUMAtriptan SUCCINATE 50 MG TABLET PO PRN (09:07)
[2016-04-25] MEDS: ONDANSETRON ODT 4 MG TABLET PO PRN (11:57)
--- NOTE | 2016-04-25 13:09 | Discharge Summary ---
Medical - DS: Prov Patient information: Note initiated : 04/25/16 at 12:57 pm Service Date, if different from initiated Date: [] Patient: Jhoana Garcia 56 y/o F admitted on 04/20/16 for Short of Breath/ Bronchopneumonia. Chief Complaint: [] Date of admission: 04/20/16 20:16 Discharge date: 04/25/16 Primary care physician: [Yue Mandel nurse practitioner [id number]] Admitting clinician: Alyson Baker Attending physician on discharge: Alyson Baker Medical - DS: Meds - Discharge Medications Prescriptions: Amitriptyline 50 mg PO HS #30 Albuterol Sulfate [Ventolin] 2.5 mg NEB TID #39 vial Imipenem/Cilastatin Sodium [Primaxin] 500 mg IV Q8H #27 vial oxyCODONE/APAP [Percocet 10-325Mg] 1 tab PO Q4-6HP PRN #20 tablet PRN Reason: Pain Active and Home Medications: Home Medications Ascorbic Acid [Vitamin C] 325 mg PO DAILY 04/20/16 [History Confirmed 04/20/16 Last Taken 04/20/16 07:00] Fidaxomicin [Dificid] 200 mg PO BID 04/20/16 [History Confirmed 04/20/16 Last Taken 04/20/16 09:00] SUMAtriptan SUCCINATE [Imitrex] 100 mg PO BIDP PRN 04/20/16 [History Confirmed 04/20/16 Last Taken 03/20/16 10:00] hydrOXYzine [Atarax] 50 mg PO HSP PRN 04/20/16 [History Confirmed 04/20/16 Last Taken 04/14/16 21:00] Active Medications Acetaminophen (Tylenol) 650 mg PO Q6HP PRN PRN Reason: PAIN/FEVER > 101 Last Admin: 04/21/16 10:53 Dose: 650 mg Albuterol Sulfate (Ventolin) 2.5 mg NEB Q6HRT [facility] Last Admin: 04/25/16 10:05 Dose: Not Given Albuterol/Ipratropium (Duoneb) 3 ml NEB ONCE PRN PRN Reason: Shortness Of Breath Last Admin: 04/23/16 03:20 Dose: 3 ml Amitriptyline HCl (Elavil) 100 mg PO HS [facility] Last Admin: 04/24/16 22:32 Dose: Not Given Ascorbic Acid (Vitamin C) 500 mg PO DAILY [facility] Last Admin: 04/25/16 08:55 Dose: 500 mg Docusate Sodium (Colace) 100 mg PO BID PRN PRN Reason: Constipation Famotidine (Pepcid) 20 mg PO BID [facility] Last Admin: 04/25/16 08:55 Dose: 20 mg Ferrous Sulfate (Ferrous Sulfate) 325 mg PO QDAY [facility] Last Admin: 04/25/16 08:55 Dose: 325 mg Heparin Sodium (Porcine) (Heparin Flush) 5 ml IV Q12 [facility] Last Admin: 04/25/16 08:57 Dose: 5 ml Hydromorphone HCl (Dilaudid) 0.5 mg IV Q8H PRN PRN Reason: Headache Hydroxyzine HCl (Atarax) 50 mg PO HSP PRN PRN Reason: Cough Last Admin: 04/24/16 21:10 Dose: 50 mg Imipenem/Cilastatin Sodium 500 (mg/ Sodium Chloride) 100 mls @ 100 mls/hr IV Q8H [facility] Last Admin: 04/25/16 05:15 Dose: 100 mls/hr Sodium Chloride (Sodium Chloride 0.9%) 1,000 mls @ 0 mls/hr IV .Q0M [facility] PRN Reason: KVO Lactobacillus Rhamnosus (Culturelle) 1 cap PO BID [facility] Last Admin: 04/25/16 08:55 Dose: 1 cap Losartan Potassium (Cozaar) 50 mg PO QDAY [facility] Last Admin: 04/25/16 08:55 Dose: 50 mg Magnesium Hydroxide (Milk Of Magnesia) 30 ml PO DAILYP PRN PRN Reason: Constipation Mercaptopurine (Mercaptopurine) 50 mg PO HS [facility] Last Admin: 04/24/16 20:40 Dose: 50 mg Montelukast Sodium (Singular) 10 mg PO QPM [facility] Last Admin: 04/24/16 20:40 Dose: 10 mg Nadolol (Corgard) 40 mg PO BID [facility] Last Admin: 04/25/16 09:07 Dose: 40 mg Naloxone HCl (Narcan) 0.1 mg IV Q1HP PRN PRN Reason: Opiate Reversal Last Admin: 04/24/16 05:23 Dose: 0.1 mg Naloxone HCl (Narcan) 0.1 mg IV Q2MIN PRN PRN Reason: Opiate Reversal Ondansetron HCl (Zofran) 4 mg SL Q6HP PRN PRN Reason: Nausea And Vomiting Last Admin: 04/23/16 15:25 Dose: 4 mg Ondansetron HCl (Zofran) 4 mg PO Q4-6H PRN PRN Reason: Nausea And Vomiting Last Admin: 04/25/16 11:57 Dose: 4 mg Oxycodone/Acetaminophen (Percocet 10-325mg) 1 tab PO Q4-6HP PRN PRN Reason: Pain Last Admin: 04/25/16 09:07 Dose: 1 tab Sodium Chloride (Saline Flush) 10 ml IV Q8 [facility] Last Admin: 04/25/16 05:15 Dose: 10 ml Sumatriptan Succinate (Imitrex) 100 mg PO BIDP PRN PRN Reason: Migraine Headache Last Admin: 04/25/16 09:07 Dose: 100 mg Warfarin Sodium (Coumadin) 5 mg PO [id number] [facility] Last Admin: 04/23/16 14:19 Dose: 5 mg Warfarin Sodium (Coumadin) 2.5 mg PO [id number] [facility] Last Admin: 04/24/16 15:28 Dose: 2.5 mg Medical - DS: Hosp Hospital course: Ms. Garcia is a 56 year old female april 25, 2016: Hospital course summary: As noted below, this patient was admitted with increasing shortness of breath and cough. She appeared to have either recurrent, orongoing,pneumonia, related to a pneumonia that she had in early March. she had continued infiltrates on her chest x-ray, and markedly leukocytosis. She is chronically immunosuppressed related to her medication she takes for Crohn's disease. I felt she was at risk for more indolent infections, such as pseudomonas or MRSA.she was started on azithromycin, vancomycin, imipenemto cover most possibilities. She is clinically improved steadilyand sedated admission, although there was one episode where she became oversedated sedated by Dilaudid. Today she does feel that she is breathing well enough that she could return home, and states she would rather have outpatient antibiotics, then stay here for prolonged antibiotics. I do think she has a better chance of completely cleared her pneumonia if we keep her on antibiotics for at least 2 weeks. she continues to have some crackles and wheezing on lung exam, so she will be sent home with nebulized albuterol as well. She may require follow-up with Dr. Gallego of infectious diseases as well, to help decide how long a quarter she needs. Alternatively, her antibiotics can be stopped to 2 weeks, and she can just be followed clinically. she was also diagnosed with possible C. difficile colitis, just prior to admission. She does continue on oral Difficid , and should probably continue on that for at least 1 week beyond her IV antibiotic course. She also is taking probiotics. She is also on a proton pump inhibitor, which increases her risk for C. difficile, so she may want to consider switching over to an H2 dante. she has had significant issues with migraine headache symptoms since she arrived but we have cut back on any IV narcotics. I will give her20 tablets of Percocet to use as needed,but otherwise she should use her home Imitrex. She also reported that she was taking 300 mg of amitriptyline at night as needed, but I think that is too high a dose for when necessary use, so suggested she cut that down to 50-100 mg at night. April 20, 2016:History of present illness: Ms. Garcia is a 56 year old female presents the emergency room today complaining of increased shortness of breath. She was just here about one month ago with community-acquired pneumonia. she is chronically immunosuppressed due to her Crohn's disease medications. She notes that she was sent home on several days' worth of oral antibiotics but has really never gotten back to baseline. she says she was doing relatively well until about 5 days ago when she noted the onset of fever and chills, with temperature as high as 102. She has noticed some mild increased dyspnea with exertion. She has never really gotten rid of the cough that started last month , and that continues to be productive of green phlegm. She is also having more frequent migraines over the lastweek or so She does have some lightheadedness with standing. She also notes that she and her doctors have an fightingwith her chronic sinus infection, and that does not seem to ever settle down. Last week, she was also diagnosedwith C. difficile colitis, and was started on oral fidaxomicin . Also, after her last admission,her Remicade was stopped by GI and she was started on Entyvio, about 2 weeks ago. She will be due for another one of those injections soon. Otherwise, she is not having new eye Or ear symptoms, or sore throat. she denies chest pain or palpitations, and has not had wheezing. She has had some ongoing abdominal discomfort and diarrhea, but these are also chronic symptoms for her. She has not had nausea or vomiting or bright red blood per rectum or dysuria. April 21, 2016: this morning, the patient notesthat her breathing seems quite a bit better. She no longer feels short of breath at rest. She denies significant productive cough.she denies fever or chills, chest pain or palpitations. She continues to have mild abdominal discomfort which is worse on the left side, and occasional loose stools, which again she says is fairly chronic for her. unfortunately, she also developed a migraine last night, and that really has not gone away today. She does not feel that the Imitrex and hydrocodone are helping. April 22, 2016: today, the patient reports decreased shortness of breath. She also has much less of a headache then yesterday, says it is nearly goneat this time. Otherwise, she denies fever or chills, chest pain although she does note some upper chest tightness when she coughs, significant shortness of breath, productive cough. She continues to have abdominal discomfort and loose stools, but again reminds me this is chronic. She denies dysuria. April 23, 2016:at approximately 3:00 this morning, I was Called to see pt who had been found unresponsive, shallow respirations, drooling. Pt had received two doses of dilaudid around midnight, in addition to amytriptylline. Pt given narcan and verbal stimulation, albuterol neb. Became more responsive. initially her O2 sats were quite low, and blood pressure was in the 80s. Blood gas at that time did show hypoxia and hypercarbia, likely due to hypoventilation. After much stimulation, IV fluids, Narcan, albuterol nebulizer , the patient to become more easily arousable, and vital signs improved. We reviewed her inpatient medications versus her home medications. At home she apparently only takes the amitriptyline at night on a when necessary basis for her headaches. She no longer uses narcotics of any kind at home but has been asking for them quite frequently here. Her told the nurses later today that she's had this problem in the past after taking pain medicines. Later this morning, the patient was more awake. She says she feels relatively well, and is having less shortness of breath. Her headache is much milder today , but she said it it has not really gone away such she got here. She does feel that whenever she gets the IV antibiotics it tends to increase the headache. Otherwise she denies fever or chills, chest pain or significant cough. She continues to have abdominal discomfort, which she thinks may be worse than yesterday. She continues to have loose stools. She denies dysuria. April 24, 2016: i stopped in to see the patient this morning, but she was sound asleep so I spoke with her instead. We discussed the possibility of a prolonged course of IV antibiotics, and a possibly doing those at home. However he informs me that her insurance refuses to cover IV antibiotics at home. this evening, the patient notes she is still having issues with her migraines which seemed to flare whenever they give her the IV antibiotics. She is wondering if she could have anything more in the way of pain medications, but we discussed that I will was reluctant to give her too much in the way of narcotics, because of the events of early yesterday morning. She continues to have a cough, but it is nonproductive. She denies fever or chills, or chest pain. She thinks her shortness of breath continues to improve. She continues to have mild abdominal discomfort, but says it's really not changing. Assessment and plan: #1. Infectious disease. This patient presents with fever and marked leukocytosis with bandemia. Clinical symptoms are suggestive of pneumonia, although her chest x-ray does not look worse than the one done 2 weeks ago. . -Admitted for broad-spectrum IV antibiotics using azithromycin, vancomycin, imipenem, to be sure she is covered fo staph and atypicals, and Pseudomonas., blood and sputum cultures, oxygen, nebulized albuterol, and other medicines as needed. she does have reported past history of both MRSA and pseudomonas infections. -clinically the patient's lung symptoms have improved steadily. -I would like to continue IV imipenem for a total of 14 days. -She does have a tendency to drop her O2 saturations below 90% with sleep, but RT tells me this does not qualify her for home O2. I discussed with her that she might want to consider having an oximeter at home, so her can check on her occasionally. #2. Pulmonary. -she does have reported chronic sinusitis, but no reported history of COPD or asthma. she is maintained on Singulair. she should be low risk for PE, given that she has been therapeutic on Coumadin. -she should have her pro time checked in 2 days, this coming Wednesday, to verify that that is stable. #3. Immune system. Patient is immunosuppressed due to ongoing treatment for Crohn's disease. #4. GI. - History of Crohn's. continue Entyvio. If abdominal pain and diarrhea increase , she might require further investigation. -C. difficile-it is possible that IV antibiotics for pneumonia will worsen this. Continue oral fidaxomicin. GI tells me she was treated for C. difficile colitis last fall, with oral vancomycin. -patient also history of GERD. i decided to discontinue her proton pump inhibitor while here, and use Pepcid instead, regarding the C. difficile. - #5. History of DVT. Continue Coumadin and monitor INR. #6. History of migraines. Imitrex when necessary. Unfortunately this is not working as well as usual. -Migraines were treated with IV Dilaudid, until she became very oversedated and difficult to arouse. She is now being given oral Percocet sparingly, and addition to lower dose amitriptyline at night. #7. CODE STATUS: Full code.she does not have a living will, but says her is her POA. #8. History of anemia. Continue iron. #9. History of hyperglycemia. Continue to monitor. #10. History of renal cell cancer 10 years ago. She appears to be cured. #11. Her glucoses have continued to run high while here, ranging from 116-231. I believe she has a history of glucose intolerance, and she may now have developed diabetes. This should be followed up with her primary care physician. - Time Spent with Patient Total time spent providing and/or coordinating discharge services: Greater than 30 minutes (approximately 40 minutes was spent today, reviewing the patient's test results, and meeting with she and her and with case management, and writing orders.) Medical - DS: Exam - Constitutional Vitals: Vital Signs Temp Pulse Pulse Resp BP BP Pulse Ox 04/25/16 12:00 98.0 F 64 16 118/78 04/25/16 08:00 97.1 F L 65 16 110/72 95 04/25/16 04:00 97.9 F 76 18 138/68 94 04/25/16 00:00 97.9 F 67 18 138/64 96 04/24/16 20:00 18 04/24/16 19:04 92 04/24/16 19:03 92 04/24/16 19:01 69 18 04/24/16 13:45 67 18 Intake and Output 04/24/16 04/25/16 04/25/16 21:59 05:59 13:59 Intake Total 200 / 200 500 / 500 220 / 220 Output Total 3100 / 3100 1150 / 1150 Balance 200 / 200 -2600 / -2600 -930 / -930 Intake: IV 200 / 200 Sodium Chloride 0.9% 100 200 / 200 ml @ 100 mls/hr IV Q8H [facility] with Primaxin 500 mg Rx#:[id number] Oral 500 / 500 220 / 220 Output: Void Amount 3100 / 3100 1150 / 1150 Other: Meal Nourishment/Supplement Percent of Meal Consumed Refused Feeding Ability Independent # Voids 2 Weight 191 lb 8 oz Additional comments: on exam, she is awake and alert. She continues to have a mild headache, but says her shortness of breath is definitely improved, as has her cough. she continues to have mild abdominal tenderness, which is chronic for her. She is not having significant diarrhea. She otherwise denies fever or chills, sore throat, chest pain or palpitations nausea or vomiting dysuria. Neck is supple without obvious lymphadenopathy or JVD. Cardiac exam shows regular rate and rhythm. Lungs show scattered crackles and soft wheezes, but she is moving air better, and exam is overall improved markedly since admission. Abdomen is soft and nontender. Extremities show no significant edema. Medical - DS: Data Labs on day of discharge: Labs from last 24 hours 04/25/16 04/25/16 05:26 05:26 WBC 8.1 RBC 3.49 L Hgb 9.9 L Hct 30.8 L MCV 88.0 MCH 28.4 MCHC 32.2 RDW 14.9 H Plt Count 335 MPV 7.5 Gran % 67.7 Lymph % (Auto) 20.1 [place] % (Auto) 9.3 H Eos % (Auto) 2.7 Baso % (Auto) 0.2 Gran # 5.5 Lymph # 1.6 [place] # 0.8 Eos # 0.2 Baso # 0 PT 23.6 H INR 2.0 H sputum sample from April 23, was contaminated and could not be read. ABG from 04/23/16: Showed a pH of 7.20, CO2 of 73, PO2 of 117, bicarbonate of 28, O2 saturation 98%, on a 15 L mask. CK was within normal limits. Troponin less than 0.01. 04/23/16;CBC today shows an increased white blood cell count 24,000, hematocrit 35 , platelet count of 552, with absolute crit radial site count of 19.8. Pro time is 24, with an INR of 2.1 Chemistry panel is only notable for glucose of 231. uric acid is elevated at9.8, calcium low at 8.5, phosphorus high at 5.8 albumin borderline low at 3.6 04/20/16:chest x-ray from the ER shows right upper lobe infiltrate and right lower lobe infiltrate, improved when compared to April 03, 2016. 04/23/16: X-ray from early this morning does show moderate sized right basilar infiltrate with extension to the right mid lung, which may be worse than 3 days ago. There is also a new vague patchy infiltrate of the left base. Consider aspiration. -abdominal x-rayshows a normalbowel gas pattern with no free air. Spinal cord stimulator and wires are intact. lactic acid is normal at 1.2 A sputum sample was not adequate for exam. Blood cultures are negative so far. Medical - DS: A/P - Patient/Caregiver Discharge Instructions Activity: increase activity as tolerated Diet: Consistent Carbohydrate Additional Instructions: . #1. Report to outpatient clinic for antibiotics IV 3 times a day. You should discuss with your primary care physician, and perhaps also Dr. Gallego, about whether he needs to stay on a longer course, regarding your immunosuppression. #2. Use a home nebulizer and uses nebulized albuterol 3 times a day to keep your lungs clear. He can decrease this as your cough and wheezing and shortness of breath resolved. #3.I gave you a prescription for a lower dose amitriptyline, as the nurse's note that the 300 mg dose seems to make it very sedated. Use this as needed. #4. I did give you a short prescription for Percocet, to use a few migraines are uncontrolled. Try to use this sparingly. Follow up with your primary care physician for this. #5. Your blood sugars have been running quite high while here. You should review with whether you need to start checking this at home, to help decide if you actually have diabetes, or if this was just an illness related effect. - Problem Maintenance (1) Bronchopneumonia Status: Acute (2) Crohns disease Status: Chronic Comment: 1985-Diagnosed per Dr. Bishop (3) MRSA (methicillin resistant Staphylococcus aureus) Status: Inactive (4) C. difficile colitis Status: Acute (5) Prediabetes Status: Chronic - Follow up Plan Follow up with: Yue Jordan, YADI, [employer] [Primary Care Provider] - Disposition: Home, Self-Care Prognosis: Good Rehab Potential: Good Overall status at discharge: patient is progressing back to baseline Medical - DS: Qual - VTE Deep Vein Thrombosis/Pulmonary Embolism Present on Admission: No
[2016-04-25] MEDS: WARFARIN 5 MG TABLET PO SCH (14:20)
[2016-04-25] MEDS: ONDANSETRON ODT 4 MG TABLET SL PRN (20:07)
[2016-04-25] MEDS: AMITRIPTYLINE 25 MG TABLET PO SCH (20:07)
[2016-04-25] MEDS: MONTELUKAST 10 MG TABLET PO SCH (20:07)
[2016-04-25] MEDS: MERCAPTOPURINE 50 MG TABLET PO SCH (20:12)
== END 2016-04-25 21:10 | disposition home or self-care (01) | DRG 194 ==
LOC: ED 15:32 → MEDSUR 20:16
PROVIDERS: ADMIT Internal Medicine; ATTEND Internal Medicine

== ENCOUNTER 2024-11-13 14:51 | Inpatient (IN) ==
[2024-11-13] MEDS: fentaNYL 100 MCG/2 ML VIAL IV ONE ×2 (15:50→17:07)
[2024-11-13] MEDS: fentaNYL 100 MCG/2 ML VIAL IV PRN (17:59)
[2024-11-13] MEDS: HYDROmorphone 0.5 MG/0.5 ML SYRINGE IV PRN ×2 (18:18→22:47)
[2024-11-13] MEDS: DIAZEPAM 10 MG/2 ML SYRINGE IV ONE ×2 (18:36→21:10)
[2024-11-13] MEDS ORDERED: ONDANSETRON 4 MG/2 ML VIAL IV PRN (21:52)
[2024-11-13] MEDS ORDERED: DIAZEPAM 10 MG/2 ML SYRINGE IV PRN (21:52)
[2024-11-13] MEDS ORDERED: HYDROmorphone 0.5 MG/0.5 ML SYRINGE IV PRN (21:52)
[2024-11-13] MEDS ORDERED: MAGNESIUM HYDROXIDE 30 ML ORAL.SUSP PO PRN (21:52)
[2024-11-13] MEDS ORDERED: NALOXONE HCL 0.4 MG/ML VIAL IV PRN (22:24)
[2024-11-13] MEDS: HYDROmorphone 0.5 MG/0.5 ML SYRINGE ONE (22:42)
[2024-11-13] MEDS: ACETAMINOPHEN 1,000 MG/100 ML BAG IV SCH (22:45)
[2024-11-13] MEDS: 0.9 % SODIUM CHLORIDE 10 ML SYRINGE IV SCH (22:47)
[2024-11-13] MEDS: BACLOFEN 10 MG TABLET PO SCH (23:07)
[2024-11-14] MEDS: HYDROmorphone 0.5 MG/0.5 ML SYRINGE ONE (00:17)
[2024-11-14 06:11] LABS: Basophils # (Auto) 0.02 K/mcL (0.00-0.30); Basophils % (Auto) 0.2 % (0.0-2.0); Eosinophils # (Auto) 0 K/mcL (0.00-0.70); Eosinophils % (Auto) 0 % (0.0-7.0); Hematocrit 38.9 % (34.1-44.9); Hemoglobin 11.9 g/dL (11.2-15.7); Lymphocytes # (Auto) 0.52 K/mcL (1.50-4.80); Lymphocytes % (Auto) 4.5 % (15.5-49.0); Mean Corpuscular HGB Conc 30.6 g/dL (31.0-36.0); Monocytes # (Auto) 0.40 K/mcL (0.10-0.90); Monocytes % (Auto) 3.5 % (1.0-12.0); Neutrophils % (Auto) 90.7 % (38.0-78.0); Platelet Count 217 K/mcL (140-440); RBC 4.18 M/mcL (3.59-5.38); WBC 11.5 K/mcL (4.5-11.0)
[2024-11-14 06:39] LABS: ALT/SGPT 38 U/L (<40); AST/SGOT 25 U/L (<32); Albumin 4.2 gm/dL (3.2-5.2); Albumin/Globulin Ratio 1.3 (1.0-2.3); Alkaline Phosphatase 107 U/L (39-117); Anion Gap 13.0 (8.0-16.0); Bilirubin,Direct < 0.2 mg/dL (0-0.3); Bilirubin,Total 0.4 mg/dL (0.1-1.0); Blood Urea Nitrogen 19 mg/dL (8-23); Calcium 9.7 mg/dL (8.6-10.4); Carbon Dioxide 23 mmol/L (22-30); Chloride 98 mmol/L (96-108); Globulin 3.3 gm/dL (2.2-3.7); Glucose 230 mg/dL (70-105); Phosphorous 5.6 mg/dL (2.5-4.5); Potassium 4.7 mmol/L (3.3-5.1); Sodium 134 mmol/L (133-145); Triglycerides 103 mg/dL (<150); Uric Acid 5.7 mg/dL (2.5-8.0)
[2024-11-14] MEDS ORDERED: DEXTROSE 31 GM ORAL.SUSP PO PRN (07:09)
[2024-11-14] MEDS ORDERED: DEXTROSE 50% 50 ML VIAL IV PRN (07:09)
[2024-11-14 08:20] LABS: Estimated Average Glucose(eAG) 146.0 mg/dL; Hemoglobin A1C 6.7 % Hgb (4.0-6.0)
[2024-11-14] MEDS: INSULIN LISPRO 1 UNIT/0.01 ML UNIT SQ SCH (09:27)
[2024-11-14] MEDS: SENNOSIDES 1 TABLET PO SCH (10:01)
[2024-11-14] MEDS ORDERED: BUPIVACAINE PF 0.5% 10 ML VIAL ONE ×2 (10:46→10:59)
[2024-11-14] MEDS ORDERED: BUPIVACAINE LIPOSOMAL 1.3% 10 ML VIAL IJ ONE ×2 (10:46→10:59)
[2024-11-14] MEDS ORDERED: MIDAZOLAM 2 MG/2 ML VIAL ONE (10:59)
[2024-11-14] MEDS ORDERED: MONTELUKAST 10 MG TABLET PO PRN (14:33)
[2024-11-14] MEDS ORDERED: ALBUTEROL SULFATE 60 PUFF INHALER INH PRN (14:33)
[2024-11-14] MEDS ORDERED: OMEPRAZOLE 20 MG CAPSULE PO SCH (15:00)
[2024-11-14] MEDS: OMEPRAZOLE 20 MG CAPSULE PO SCH (17:37)
[2024-11-14] MEDS: ATORVASTATIN 20 MG TABLET PO SCH (20:58)
[2024-11-14] MEDS: APIXABAN 5 MG TABLET PO SCH (20:58)
[2024-11-14] MEDS ORDERED: APIXABAN 5 MG TABLET PO SCH (21:00)
[2024-11-14] MEDS: AMITRIPTYLINE 25 MG TABLET PO SCH (21:32)
[2024-11-14] MEDS: LOSARTAN 50 MG TABLET PO SCH (21:36)
[2024-11-15] MEDS: AMITRIPTYLINE 25 MG TABLET PO SCH (09:10)
[2024-11-15] MEDS: ALBUTEROL SULFATE 2.5 MG/3 ML NEBULIZER NEB PRN (09:22)
[2024-11-16 07:03] LABS: Basophils # (Auto) 0.03 K/mcL (0.00-0.30); Basophils % (Auto) 0.3 % (0.0-2.0); Eosinophils # (Auto) 0.20 K/mcL (0.00-0.70); Eosinophils % (Auto) 1.8 % (0.0-7.0); Hematocrit 30.0 % (34.1-44.9); Hemoglobin 9.3 g/dL (11.2-15.7); Lymphocytes # (Auto) 0.96 K/mcL (1.50-4.80); Lymphocytes % (Auto) 8.6 % (15.5-49.0); Mean Corpuscular HGB Conc 31.0 g/dL (31.0-36.0); Monocytes # (Auto) 1.10 K/mcL (0.10-0.90); Monocytes % (Auto) 9.8 % (1.0-12.0); Neutrophils % (Auto) 79.2 % (38.0-78.0); Platelet Count 169 K/mcL (140-440); RBC 3.18 M/mcL (3.59-5.38); WBC 11.2 K/mcL (4.5-11.0)
[2024-11-16 07:15] LABS: ALT/SGPT 30 U/L (<40); AST/SGOT 27 U/L (<32); Albumin 3.5 gm/dL (3.2-5.2); Albumin/Globulin Ratio 1.3 (1.0-2.3); Alkaline Phosphatase 92 U/L (39-117); Anion Gap 9.0 (8.0-16.0); Bilirubin,Direct 0.3 mg/dL (<0.3); Bilirubin,Total 0.7 mg/dL (0.1-1.0); Blood Urea Nitrogen 22 mg/dL (8-23); Calcium 9.3 mg/dL (8.6-10.4); Carbon Dioxide 27 mmol/L (22-30); Chloride 93 mmol/L (96-108); Globulin 2.7 gm/dL (2.2-3.7); Glucose 152 mg/dL (70-105); Phosphorous 3.4 mg/dL (2.5-4.5); Potassium 4.5 mmol/L (3.3-5.1); Sodium 129 mmol/L (133-145); Triglycerides 149 mg/dL (<150); Uric Acid 5.9 mg/dL (2.5-8.0)
[2024-11-16] MEDS: SODIUM CHLORIDE 1 GM TABLET PO SCH (08:22)
[2024-11-16] MEDS: 0.9 % SODIUM CHLORIDE 500 ML IV ONE (08:24)
[2024-11-16] MEDS: METHOCARBAMOL 1,000 MG/10 ML VIAL IV PRN (08:33)
[2024-11-16] MEDS ORDERED: fentaNYL 100 MCG/2 ML VIAL IV PRN (11:01)
[2024-11-16] MEDS: KETOROLAC 30 MG/ML VIAL IV SCH (11:26)
[2024-11-16] MEDS: 0.9 % SODIUM CHLORIDE 10 ML SYRINGE IV SCH (21:35)
[2024-11-16] MEDS: HEPARIN 10 UNITS/ML 5ML FLUSH IV SCH (21:36)
[2024-11-17 06:45] LABS: Basophils # (Auto) 0.04 K/mcL (0.00-0.30); Basophils % (Auto) 0.4 % (0.0-2.0); Eosinophils # (Auto) 0.22 K/mcL (0.00-0.70); Eosinophils % (Auto) 2.3 % (0.0-7.0); Hematocrit 30.5 % (34.1-44.9); Hemoglobin 9.5 g/dL (11.2-15.7); Lymphocytes # (Auto) 0.71 K/mcL (1.50-4.80); Lymphocytes % (Auto) 7.4 % (15.5-49.0); Mean Corpuscular HGB Conc 31.1 g/dL (31.0-36.0); Monocytes # (Auto) 0.93 K/mcL (0.10-0.90); Monocytes % (Auto) 9.7 % (1.0-12.0); Neutrophils % (Auto) 79.7 % (38.0-78.0); Platelet Count 185 K/mcL (140-440); RBC 3.26 M/mcL (3.59-5.38); WBC 9.6 K/mcL (4.5-11.0)
[2024-11-17 07:29] LABS: ALT/SGPT 29 U/L (<40); AST/SGOT 21 U/L (<32); Albumin 3.3 gm/dL (3.2-5.2); Albumin/Globulin Ratio 1.1 (1.0-2.3); Alkaline Phosphatase 100 U/L (39-117); Anion Gap 11.0 (8.0-16.0); Bilirubin,Direct 0.3 mg/dL (<0.3); Bilirubin,Total 0.6 mg/dL (0.1-1.0); Blood Urea Nitrogen 32 mg/dL (8-23); Calcium 9.2 mg/dL (8.6-10.4); Carbon Dioxide 27 mmol/L (22-30); Chloride 97 mmol/L (96-108); Globulin 3.0 gm/dL (2.2-3.7); Glucose 144 mg/dL (70-105); Phosphorous 2.9 mg/dL (2.5-4.5); Potassium 4.7 mmol/L (3.3-5.1); Sodium 135 mmol/L (133-145); Triglycerides 112 mg/dL (<150); Uric Acid 6.7 mg/dL (2.5-8.0)
[2024-11-17] MEDS ORDERED: METHOCARBAMOL 500 MG TABLET PO PRN (10:08)
[2024-11-17] MEDS: fentaNYL 12 MCG PATCH TOPICAL SCH (12:14)
[2024-11-17] MEDS: KETOROLAC 10 MG TABLET PO PRN (12:14)
[2024-11-17] MEDS: MERCAPTOPURINE 50 MG TABLET PO SCH (20:20)
[2024-11-18 06:36] LABS: ALT/SGPT 21 U/L (<40); AST/SGOT 18 U/L (<32); Albumin 3.2 gm/dL (3.2-5.2); Albumin/Globulin Ratio 1.1 (1.0-2.3); Alkaline Phosphatase 97 U/L (39-117); Anion Gap 11.0 (8.0-16.0); Bilirubin,Direct 0.3 mg/dL (<0.3); Bilirubin,Total 0.5 mg/dL (0.1-1.0); Blood Urea Nitrogen 23 mg/dL (8-23); Calcium 9.2 mg/dL (8.6-10.4); Carbon Dioxide 26 mmol/L (22-30); Chloride 94 mmol/L (96-108); Globulin 2.8 gm/dL (2.2-3.7); Glucose 147 mg/dL (70-105); Phosphorous 3.4 mg/dL (2.5-4.5); Potassium 4.6 mmol/L (3.3-5.1); Sodium 131 mmol/L (133-145); Triglycerides 121 mg/dL (<150); Uric Acid 5.6 mg/dL (2.5-8.0)
[2024-11-18] MEDS: LIDOCAINE 4% TOP PATCH TOPICAL SCH (10:06)
[2024-11-18] MEDS: CALCIUM CARBONATE 500 MG TAB.CHEW CHEWED PRN (12:36)
[2024-11-18] MEDS: BISMUTH SUBSALICYLATE 15 ML ORAL.SUSP PO SCH (12:55)
[2024-11-18] MEDS ORDERED: POLYETHYLENE GLYCOL 3350 17 GM PACKET PO PRN (13:32)
[2024-11-18] MEDS ORDERED: SENNOSIDES 1 TABLET PO PRN (13:32)
[2024-11-18] MEDS: SENNOSIDES 1 TABLET PO SCH (13:45)
[2024-11-18] MEDS: DOCUSATE SODIUM 100 MG CAPSULE PO SCH (13:45)
[2024-11-18] MEDS: POLYETHYLENE GLYCOL 3350 17 GM PACKET PO SCH (13:45)
[2024-11-18] MEDS ORDERED: BISACODYL 10 MG SUPP.RECT PR SCH (19:32)
[2024-11-18] MEDS: AMITRIPTYLINE 25 MG TABLET PO SCH (20:09)
[2024-11-18] MEDS: MELATONIN 3 MG TABLET PO SCH (20:10)
[2024-11-18] MEDS: LACTULOSE 20 GM/30 ML ORAL.SOL PO PRN (21:42)
[2024-11-19] MEDS: BISACODYL 10 MG SUPP.RECT PR STA (00:25)
[2024-11-19] MEDS: BISACODYL 10 MG SUPP.RECT PR ONE (00:25)
[2024-11-19] MEDS: ONDANSETRON 4 MG ODT TABLET PO PRN (08:44)
[2024-11-19] MEDS ORDERED: BISACODYL 10 MG SUPP.RECT PR PRN (09:00)
[2024-11-19] MEDS: BISMUTH SUBSALICYLATE 15 ML ORAL.SUSP PO PRN (10:10)
[2024-11-20 07:43] VITALS: TEMP 97.6; O2SAT 93
== END 2024-11-20 11:43 | DRG 534 ==
LOC: ED 14:51 → MEDSUR 21:50
PROVIDERS: ADMIT Internal Medicine; ATTEND Internal Medicine